=== PATIENT | female | born 1965 | race Caucasian/White ===

== ENCOUNTER 2022-02-25 | Outpatient (REF) | payer OTHER, SELFPAY | END 2022-02-25 00:01 | disposition home or self-care (01) | LOC: HO.LNP | PROVIDERS: Visit Provider Hospitalist | DX: R82.71 Bacteriuria (principal) | CPT/HCPCS: 87086 ==

== ENCOUNTER 2022-03-01 07:08 | Outpatient (REF) | payer OTHER, SELFPAY ==
[2022-03-01 11:48] LABS: Alanine Aminotransferase 11 U/L (0-31); Albumin Level 4.4 g/dL (3.5-5.0); Alkaline Phosphatase 73 U/L (39-117); Anion Gap 12 (12-20); Aspartate Amino Transferase 11 U/L (5-31); Bilirubin Total 0.9 mg/dL (0.0-1.0); Blood Urea Nitrogen 19 mg/dL (9-16); Calcium 9.5 mg/dL (8.4-10.2); Carbon Dioxide 29 mmol/L (22-29); Chloride 102 mmol/L (96-108); Cholesterol 230 mg/dL; Estimated Glomerular Filt Rate 58; Glucose Fasting 97 mg/dL (60-99); HDL Cholesterol 52 mg/dL; LDL Cholesterol Calculated 158 mg/dl; Potassium 3.8 mmol/L (3.3-5.1); Sodium 139 mmol/L (135-145); Total Protein 7.2 g/dL (6.5-8.0); Triglycerides 104 mg/dL
[2022-03-01 11:53] LABS: Hematocrit 43.1 % (37.0-47.0); Hemoglobin 14.4 g/dl (12.0-16.0); Mean Corpuscular HGB Conc 33.4 g/dl (31.0-35.0); Mean Corpuscular Hemoglobin 30.7 pg (27.0-33.0); Mean Corpuscular Volume 91.9 fL (80.0-98.0); Mean Platelet Volume 10.6 fL (9.4-12.3); Platelet Count 255 X10*3/uL (160-400); Red Blood Count 4.69 X10*6/uL (4.20-5.50); Red Cell Distribution Width 12.2 % (11.0-16.0); White Blood Count 6.7 X10*3/uL (4.8-10.8)
[2022-03-01 12:12] LABS: TSH reflex Free T4 1.16 uIU/mL (0.32-4.0)
== END 2022-03-01 07:09 | disposition home or self-care (01) ==
LOC: HO.WFDLDS 07:08
PROVIDERS: Visit Provider Hospitalist
DX: Z00.00 Encounter for general adult medical examination without abnormal findings (principal)
CPT/HCPCS: 36415; 80053; 80061; 84443; 85027

== ENCOUNTER 2022-04-08 10:52 | Outpatient (REF) | payer OTHER, SELFPAY ==
--- NOTE | ~2022-04-08 | MM_ITS ---
EXAMINATION: MM SCREENING DIGITAL BREAST TOMOSYNTHESIS, BILATERAL CLINICAL INFORMATION: Screening. Asymptomatic. The lifetime risk of breast cancer based on the Tyrer-Cuzick Model is 11%. COMPARISON: Mammography: None TECHNIQUE: Digital breast tomosynthesis is performed in both the craniocaudal and mediolateral oblique views along with computer-aided detection (CAD). Synthesized 2D images are generated from the tomosynthesis. FINDINGS: There are scattered areas of fibroglandular density (ACR BI-RADS breast composition Category b). There are no significant masses, abnormal calcifications, or other abnormalities. MM/MM tomosynthesis screening BI IMPRESSION: No mammographic evidence of malignancy. ASSESSMENT: BI-RADS 1: Negative RECOMMENDATION: Routine annual mammography screening. This patient's information was entered into a reminder system with a target due date for their next mammogram.
== END 2022-04-08 10:53 | disposition home or self-care (01) ==
LOC: HO.MAMMO 10:52
PROVIDERS: Visit Provider Hospitalist
DX: Z12.31 Encounter for screening mammogram for malignant neoplasm of breast (principal)
CPT/HCPCS: 77063; 77067

== ENCOUNTER 2023-04-15 09:03 | Day surgery (SDC) | payer OTHER, SELFPAY ==
--- NOTE | 2023-04-13 14:52 | HO.ANESPROP2 ---
Documented by User: Yulissa Chen NP 04/13/23 14:52 HPI - Anesthesia Eval Consult details Narrative: 57yo F for Colonoscopy [facility] Active Problems Active Problems: All Active Problems (Updated 02/25/22 @ 14:58 by Shivani Roman NP) Bacteria in urine (Acute) Screening due (Acute) Normal physical exam (Acute) Past Medical History Medical History (Updated 09/15/23 @ 20:31 by Antonio Conner MD) Thyroid cancer Family History Family History Mother Leukemia Father Leukemia Surgical History Surgical History (Updated 08/31/23 @ 09:57 by Amrita Juarez CMA) H/O colonoscopy H/O thyroidectomy History of lithotripsy Social History Household Members: Spouse and Children Housing: House Alcohol intake: never Patient Tobacco Use Status: Never used Tobacco e-Cigarette/Vaping Use: Never Used service: No Current occupational status: retired Cognitive needs: No Hearing needs: No Vision needs: Yes (Prescriprion glasses) Meds Allergies Allergy/AdvReac Type Severity Reaction Status Date / Time No Known Allergies Allergy Verified 08/31/23 09:52 Home Medications Medication Instructions Recorded Confirmed Last Taken Type levothyroxine 112 mcg capsule 112 mcg PO DAILY 02/25/22 04/15/23 Unknown History Exam Exam Date and Time: April 13, 2023 1452 Assessment and Plan Assessment Anesthesia Assessment: Chart Reviewed Documented by User: Riyk Thomson MD 09/22/23 23:56 [facility] Past Medical History Medical History (Updated 09/15/23 @ 20:31 by Antonio Conner MD) Thyroid cancer Functional capacity: independent ambulation Family History Family History Mother Leukemia Father Leukemia Family history of problems with anesthesia: No Surgical History Surgical History (Updated 08/31/23 @ 09:57 by Amrita Juarez CMA) H/O colonoscopy H/O thyroidectomy History of lithotripsy History of Problems with Anesthesia: No Social History Household Members: Spouse and Children Housing: House Alcohol intake: never Patient Tobacco Use Status: Never used Tobacco e-Cigarette/Vaping Use: Never Used service: No Current occupational status: retired Cognitive needs: No Hearing needs: No Vision needs: Yes (Prescriprion glasses) Meds Allergies Allergy/AdvReac Type Severity Reaction Status Date / Time No Known Allergies Allergy Verified 08/31/23 09:52 Home Medications Medication Instructions Recorded Confirmed Last Taken Type levothyroxine 112 mcg capsule 112 mcg PO DAILY 02/25/22 04/15/23 Unknown History Exam Airway Mallampati Class: III Loose/Missing/Broken Teeth: Yes Assessment and Plan Assessment Anesthesia Assessment: Anesthesia Plan Discussed Final Anesthetic Review Family History of Problems with Anesthesia: No History of Problems with Anesthesia: No NPO: Yes ASA Class: II Final Preanesthetic Review: Meds/Allgs Chart Reviewed, Consent Obtained/Reviewed and Anes Risks/Benef Reviewed Patient Risk: Intermediate Procedure Risk: Intermediate Anesthetic Plan Anesthetic Plan: MAC: and Agree w/ Assess. and Plan Disposition: Standard PACU
[2023-04-15 09:14] VITALS: BMI 22.9
[2023-04-15 09:27] VITALS: BP 157/85; PULSE 86; RESP 16; TEMP 36.9; O2SAT 98
[2023-04-15] MEDS: Lactated Ringers 1,000 ML 100 ML IVCONT (09:38)
--- NOTE | 2023-04-15 10:08 | MHC.SHP ---
Pre-Procedural Eval Section A Date of Service: 04/15/23 The patient is an INPATIENT: No The History & Physical has been completed within 30 days and I have reviewed it.: No Section B Chief Complaint: Colon cancer screening Relevant Family History (Specify if Yes): No Relevant Social History: None Present Medications: see Short Stay Collaborative assessment Medical History: Significant History (Thyroid cancer) History of Previous Operations: Relevant previous surgery/procedure and date(s) (Status post thyroidectomy) Allergies: Allergies Allergy/AdvReac Type Severity Reaction Status Date / Time No Known Allergies Allergy Verified 02/25/22 14:04 Review of Systems Sugical H&P ROS: Negative: Constitution, Cardiovascular, Respiratory and Gastrointestinal Exam Surgical H&P Exam: Normal: Heart, Normal: Lungs, Normal: Extremities and Normal: Abdomen Plan Diagnosis/Plan: Unchanged I have reviewed the history and physical and performed a pertinent physical examination on my patient. No changes have occurred unless specified. Time Spent With Patient Time: Total time managing care of this patient today ____ minutes.
--- NOTE | 2023-04-15 10:24 | P.OP_ITS ---
Operative Note Operative Note Date of Service: 04/15/23 Narrative: COLONOSCOPY TILL CECUM WITH SNARE POLYPECTOMY Pre-op diagnosis: Colon cancer screening (2nd colon, per patient negative colonoscopy 13 yrs ago in [place]) Post-op diagnosis:? Colon polyps, diverticulosis, hemorrhoids Endoscopist:? Ten Vicente MD Anesthesia:?MAC Consent: Indications for the procedure and potential complications of bleeding, perforation, reaction to medications and missed diagnosis were discussed with the patient and informed consent was obtained. Instrument: Olympus PCF H 190 L variable stiffness pediatric colonoscope Monitoring: Vital signs and clinical assessment, intermittent blood pressure monitoring, continuous EKG monitoring, Pulse oximetry and Carbon Dioxide monitoring were done throughout the procedure. Please see anesthesia flowsheet. Colon withdrawl time was 18 minutes. Procedure: The patient was placed in the left lateral decubitis position and pre-procedure medications were administered. After a digital rectal examination of the ano-rectum, the video colonoscope was inserted into the rectum and advanced through the colon to the cecum. The colonoscope was slowly withdrawn in a retrograde panoramic fashion and the colon mucosa was carefully examined including a retroflexed view of the rectum. Findings and interventions are described below. Procedure Difficulty: Without difficulty Findings: Terminal Ileum: Not evaluated Cecum: Normal Ascending Colon: Moderate scattered diverticulosis throughout the colon Transverse Colon: Moderate scattered diverticulosis throughout the colon Descending Colon: Two 7-8 mm sessile polyp - removed with a cold snare. Moderate scattered diverticulosis throughout the colon Sigmoid Colon: A 10 - 12 mm sessile polyp - removed with a hot snare. Moderate diverticulosis Rectum: Normal Ano-rectum: Small internal hemorrhoids Colon preparation: Excellent Impression and Post Procedure Diagnosis: Colonoscopy Findings: Three small to medium sized polyps removed Moderate diverticulosis seen in the entire colon Small hemorrhoids on retroflexed exam. Plan: I will send a letter with pathology results Repeat Colonoscopy interval based on path results - in 3-5 years if polyps are adenomatous and 10 years if polyps are hyperplastic. Above findings were reviewed with the patient and colon polyps and diverticulosis handouts were given in the discharge area
[2023-04-15 11:14] VITALS: BP 95/54; PULSE 73; RESP 15; TEMP 36.3; O2SAT 99
[2023-04-15 11:30] VITALS: BP 97/66; PULSE 59; RESP 18; O2SAT 98
[2023-04-15 11:45] VITALS: BP 110/68; PULSE 60; RESP 18; O2SAT 99
[2023-04-15 12:00] VITALS: BP 122/83; PULSE 66; RESP 18; TEMP 36.3; O2SAT 100
== END 2023-04-15 12:45 | disposition home or self-care (01) ==
PROVIDERS: PCP Hospitalist; Visit Provider Internal Medicine Gastroenterology
PROC: 0DJD8ZZ Inspection of Lower Intestinal Tract, Via Natural or Artificial Opening Endoscopic (ICD-10-PCS; CPT 45378; principal; 2023-04-15 10:30)
DX: Z12.11 Encounter for screening for malignant neoplasm of colon (principal); D12.4 Benign neoplasm of descending colon; K63.5 Polyp of colon; K57.30 Diverticulosis of large intestine without perforation or abscess without bleeding; K64.8 Other hemorrhoids; E89.0 Postprocedural hypothyroidism; Z79.899 Other long term (current) drug therapy; Z85.850 Personal history of malignant neoplasm of thyroid; Z87.442 Personal history of urinary calculi
CPT/HCPCS: 45385; 88305; J2250

== ENCOUNTER 2023-05-10 07:04 | Outpatient (REF) | payer OTHER, SELFPAY ==
[2023-05-10 11:12] LABS: MANUAL DIFF FLAG NO
[2023-05-10 11:32] LABS: Basophils Percent Auto 0.2 % (0-2); Eosinophils Percent Auto 0.8 % (0-4); Hemoglobin 14.4 g/dl (12.0-16.0); Imm Gran Abs Auto 0.02 X10*3/uL (0.00-0.03); Imm Gran Pct Auto 0.4 % (0.0-0.4); Lymphocytes Absolute Auto 1.6 X10*3/uL (1.2-4.9); Mean Corpuscular HGB Conc 33.5 g/dl (31.0-35.0); Mean Corpuscular Hemoglobin 31.6 pg (27.0-33.0); Mean Corpuscular Volume 94.5 fL (80.0-98.0); Mean Platelet Volume 10.7 fL (9.4-12.3); Monocytes Absolute Auto 0.4 X10*3/uL (0.1-1.2); Neutrophils Absolute Auto 2.9 x10*3/uL (2.0-8.3); Neutrophils Percent Auto 58.6 % (45-73); Platelet Count 214 X10*3/uL (160-400); Red Blood Count 4.55 X10*6/uL (4.20-5.50); Red Cell Distribution Width 11.9 % (11.0-16.0)
[2023-05-10 11:37] LABS: Appearance Urine Clear; Color Urine Yellow; Glucose Urine UA Negative (Negative); Leukocyte Esterase Urine Negative (Negative); Nitrite Urine Negative (Negative); Specific Gravity - Urine <= 1.005 (1.005-1.025); Urine Blood Negative (Negative); Urine Ketones Negative (Negative); Urine Protein Negative (Neg-Trace)
[2023-05-10 12:07] LABS: Alanine Aminotransferase 14 U/L (0-31); Albumin Level 4.6 g/dL (3.5-5.0); Alkaline Phosphatase 74 U/L (39-117); Anion Gap 14 (12-20); Aspartate Amino Transferase 13 U/L (5-31); Blood Urea Nitrogen 23 mg/dL (9-16); Carbon Dioxide 27 mmol/L (22-29); Chloride 103 mmol/L (96-108); Cholesterol 271 mg/dL; Estimated Glomerular Filt Rate 58; Glucose Fasting 94 mg/dL (60-99); HDL Cholesterol 61 mg/dL; LDL Cholesterol Calculated 172 mg/dl; Sodium 140 mmol/L (135-145); Total Protein 7.5 g/dL (6.5-8.0); Triglycerides 192 mg/dL
[2023-05-10 13:07] LABS: Creatinine Urine 13.73 mg/dL; Microalbumin Urine < 5.0 mg/L
== END 2023-05-10 07:05 | disposition home or self-care (01) ==
LOC: HO.WFDLDS 07:04
PROVIDERS: Visit Provider Family Medicine
DX: Z00.00 Encounter for general adult medical examination without abnormal findings (principal); I10 Essential (primary) hypertension
CPT/HCPCS: 36415; 80053; 80061; 81003; 82043; 84443; 85025

== ENCOUNTER 2023-05-11 08:43 | Emergency (ER) | payer OTHER, SELFPAY ==
[2023-05-11 09:17] VITALS: BP 144/88; PULSE 76; RESP 16; TEMP 36.8; O2SAT 99; BMI 23.8
--- NOTE | 2023-05-11 10:24 | ED.ABDPAIN ---
HPI - Abdominal Pain General Chief Complaint: General Medical Stated Complaint: possible Kidney stone Time Seen by Provider: 05/11/23 10:16 Source: patient Mode of arrival: ambulatory Limitations: no limitations History of Present Illness MD elicited complaint: abdominal pain Pertinent past history: kidney stones Onset (ago): week(s) (started 04/15) Pain Consistency: intermittent Location: R flank Severity: mild Quality: aching Radiation: none Migration to: no migration Exacerbating factors: nothing Relieving factors: nothing Context: other (hx of kidney stones had colonoscopy might have started after stools seems smaller - polyps on colonoscopy and diverticulosis) Associated symptoms: denies other symptoms Related Data Home Medications Medication Instructions Recorded Confirmed levothyroxine 112 mcg capsule 112 mcg PO DAILY 02/25/22 04/15/23 Allergies Allergy/AdvReac Type Severity Reaction Status Date / Time No Known Allergies Allergy Verified 05/11/23 09:25 Review of Systems Review of Systems Constitutional : No Weight loss, No Fever, No Chills ENT/Mouth : No sore throat, No Rhinorrhea Eyes: No Swelling, No Redness Cardiovascular : No Chest Pain, No SOB, NoEdema Respiratory : No Cough, No Sputum, No Wheezing Gastrointestinal : no Nausea, no Vomiting, no Diarrhea, positive abdominal Pain, No Hematochezia, No Melena Genitourinary : No Dysuria, No Urinary Frequency, No Hematuria, No Urgency Musculoskeletal : No joint pain, No Myalgias, No Joint Swelling Skin : No Skin Lesions, No rash Neuro : No Weakness, No Numbness, No Dizziness, No Headache Psych : No Anxiety/Panic, No Depression All other systems reviewed and are negative. [facility] Past Medical History Attestation statement: The following information was validated with the patient. Source: old records reviewed Medical History Thyroid cancer Surgical History H/O thyroidectomy History of lithotripsy Family History Family History Mother Leukemia Father Leukemia Social History Social History Household Members: Spouse and Children Housing: House Alcohol intake: never Patient Tobacco Use Status: Never used Tobacco e-Cigarette/Vaping Use: Never Used Advance Directives: No service: No Physical Exam ED Vital Signs: Vital Signs - 24 hr 05/11/23 09:17 Temperature 98.2 F Pulse Rate 76 Respiratory Rate 16 Blood Pressure 144/88 H Pulse Oximetry 99 Oxygen Delivery Method Room Air BMI result Body Mass Index 23.8 Appearance: Alert. Oriented X3. No acute distress. Eyes: Pupils equal, round and reactive to light. ENT: Pharynx normal. Neck: Normal inspection. Neck supple. CVS: Normal heart rate and rhythm. Pulses normal. Respiratory: No respiratory distress. Breath sounds normal. Abdomen: Soft and nontender. no CVA ttp no abdominal ttp on exam Skin: Skin warm and dry. Normal skin color. Normal skin turgor. Extremities: No lower extremity edema. No calf ttp Neuro: Oriented X 3. No motor deficit. No sensory deficit. Procedures Procedure Narrative Procedure Narrative: R renal and gallbladder - no stones, no pericholecystic fluid - neg kinsey's sign, no hydronephrosis no stones noted in R kidney Medical Decision Making Medical Decision Making MDM Narrative: 57 yo female with non reproduceable R flank pain without associated symptoms and no abdominal pain on exam - she is not toxic, US is normal labs are normal and urine was normal from PCP. at this time benign abdominal exam and benign and bedside US negative - given normal labs and UA negative can be DC home with outpatient follow up and GI - will defer CT scan given normal labs and benign abdominal exam Differential Diagnosis Differential Diagnoses: The differential diagnosis associated with the presentation includes renal colic, biliary colic, MSK strain Lab Data [facility] Lab Attestation statement: I reviewed the patient's lab results. Independent Interpretation I performed an independent interpretation of an: Ultrasound (no gallstones, no hydronephrosis) External Record Review External record reviewed: Inpatient record and Prior outpatient labs normal CBC, BMP, UA Tests considered The following testing was considered but not selected: CT scan but given normal labs, US no abdominal ttp risks of radiation outweigh benefit Discharge Plan Discharge Clinical Impression: Flank pain Patient Disposition: Home, Self-Care Instructions: Flank Pain (ED) Additional Instructions: your labs and urine were reassuring from your doctor - follow up on cholesterol. your ultrasound in the ED did not show gallstones or stones / obstruction in your kidney - please follow up with your doctor and obtain formal abdominal ultrasound return for fevers, weight loss, vomiting, black or bloody stools, difficulty urinating or any other concerns. Prescriptions: No Action levothyroxine 112 mcg capsule 112 mcg PO DAILY Referrals: Shivani Roman NP [Primary Care Provider] - 1 week (in the next week) Ten Vicente MD [Physician] - (if symptoms persist beyond a week)
== END 2023-05-11 10:56 | disposition home or self-care (01) ==
PROVIDERS: Emergency Provider Emergency Medicine; PCP Hospitalist
DX: R10.9 Unspecified abdominal pain (principal)
CPT/HCPCS: 99283; 99284

== ENCOUNTER 2023-05-16 11:24 | Outpatient (AMB) | payer OTHER, SELFPAY ==
--- NOTE | 2023-05-16 11:20 | MHC.PC.OV ---
Intake Visit Reasons: discuss lab results Intake Note: Patient is following up on blood work today. Allergies No Known Allergies Allergy (Verified 05/16/23 11:21) Tobacco use date assessed: 05/16/23 Dental Screening Dental Screen Date: 05/16/23 Did you have a dental visit in the last 12 months?: Yes Did you have a dental problem in the last 6 months where you did not have access to dental care?: No Was dental information given to patient?: No HPI discuss lab results HPI Details 57 y/o female presents to f/u labs via telemedicine. Labs were drawn 05/10/23. Reviewed labs with pt. Triglycerides 192. TC 271. LDL 172. HDL 61. TSH levels are fine at 2.90. She is on levothyroxine 112 mcg. HPI Comments History of Present Illness Details Documentation assistance for Antonio Conner MD, was provided by Rafiq Hannah, Advertising Sales Agent on 05/16/2023 11:35 AM EST. I, Dr. Conner, have read, observed, and verified documentation. [facility] Medical History Thyroid cancer Surgical History H/O thyroidectomy History of lithotripsy Family History Mother Leukemia Father Leukemia Social History Household Members: Spouse and Children Housing: House Alcohol intake: never Patient Tobacco Use Status: Never used Tobacco e-Cigarette/Vaping Use: Never Used service: No Physical exam (Primary Care) Tobacco/Smoking Status: Tobacco use Status Tobacco use date assessed 05/16/23 05/16/23 11:22 Patient Tobacco Use Status Never used Tobacco 05/16/23 11:22 e-Cigarette/Vaping Use Never Used 05/16/23 11:22 Telehealth Telehealth Location of provider rendering services: practice address Location of patient: address on file Patient Identification confirmed using: Name, : Yes Telehealth method: voice only Patient verbally consented to treatment: Yes Patient verbally consented to billing insurance company: Yes Patient informed of any privacy concerns related to visit: Yes Minutes spent on Phone/Video with Pt.: 8 Assessment and Plan Assessment & Plan (1) Hyperlipidemia: Code(s): E78.5 - Hyperlipidemia, unspecified Plan: LDL cholesterol is too high. HDL is significantly elevated and somewhat protective but recommended patient work at a diet lower in saturated fats and cholesterol She will repeat her lipids prior to her next appointment with her PCP (2) H/O thyroidectomy: Comment: unknown if partial or all Code(s): E89.0 - Postprocedural hypothyroidism Plan: TSH was within normal limits No change to her levothyroxine (3) Dehydration, mild: Code(s): E86.0 - Dehydration Plan: EGFR 58 and BUN creatinine ratio suggestive of mild dehydration Encouraged her to hydrate well with water prior to her next lab draw Follow-up with PCP Orders: Orders Comprehensive [place]. Panel Fast Today Z00.00 - Encounter for general adult medical examination without abnormal findings Lipid Panel Today E78.5 - Hyperlipidemia, unspecified, Z00.00 - Encounter for general adult medical examination without abnormal findings Coding Level of Care Code Tele Est Pt Level 2 (44827) Diagnoses Hyperlipidemia E78.5 H/O thyroidectomy E89.0 Dehydration, mild E86.0
== END 2023-05-16 11:45 | disposition home or self-care (01) ==
LOC: HO.HMGFM 11:24
PROVIDERS: PCP Hospitalist; Visit Provider Family Medicine
DX: E78.5 Hyperlipidemia, unspecified (principal); E89.0 Postprocedural hypothyroidism; E86.0 Dehydration
CPT/HCPCS: 99212

== ENCOUNTER 2023-07-13 07:03 | Outpatient (REF) | payer OTHER, SELFPAY ==
[2023-07-13 12:40] LABS: Alanine Aminotransferase 13 U/L (0-31); Albumin Level 4.5 g/dL (3.5-5.0); Alkaline Phosphatase 62 U/L (39-117); Anion Gap 12 (12-20); Aspartate Amino Transferase 15 U/L (5-31); Bilirubin Total 0.8 mg/dL (0.0-1.0); Blood Urea Nitrogen 23 mg/dL (9-16); Calcium 9.6 mg/dL (8.4-10.2); Carbon Dioxide 26 mmol/L (22-29); Chloride 105 mmol/L (96-108); Cholesterol 259 mg/dL (<200); Estimated Glomerular Filt Rate 55; Glucose Fasting 95 mg/dL (60-99); HDL Cholesterol 55 mg/dL (>40); LDL Cholesterol Calculated 167 mg/dL (<100); Potassium 4.2 mmol/L (3.3-5.1); Sodium 139 mmol/L (135-145); Total Protein 7.3 g/dL (6.5-8.0); Triglycerides 188 mg/dL (<150)
== END 2023-07-13 07:04 | disposition home or self-care (01) ==
LOC: HO.WFDLDS 07:03
PROVIDERS: Visit Provider Family Medicine
DX: Z00.00 Encounter for general adult medical examination without abnormal findings (principal); E78.5 Hyperlipidemia, unspecified
CPT/HCPCS: 36415; 80053; 80061

== ENCOUNTER 2023-08-31 09:41 | Outpatient (AMB) | payer OTHER, SELFPAY ==
--- NOTE | 2023-08-31 09:46 | A.OFFPC_ITS ---
Vital Signs 08/31/23 09:49 Height 5 ft 8 in Weight 156 lb BMI 23.7 BP 122/72 Blood Pressure Location Lt brachial Position Sitting Pulse 78 Pulse Source Pulse Oximeter Pulse Oximetry (%) 99 Oxygen Delivery Method Room Air Intake Visit Reasons: trans care from [facility] Intake Note: Patient is here to transfer care from [facility]. Allergies No Known Allergies Allergy (Verified 08/31/23 09:52) Tobacco use date assessed: 08/31/23 Dental Screening Dental Screen Date: 08/31/23 Did you have a dental visit in the last 12 months?: Yes Did you have a dental problem in the last 6 months where you did not have access to dental care?: No Was dental information given to patient?: Patient has dentist HPI trans care from [facility] HPI Details Transfer?of?care Prior?PCP:??SV Last?office?visit/CPE: Acute?issue(s): Hyperlipidemia -Labs were drawn 07/13/23. Reviewed labs with pt. Triglycerides 188. TC 259. LDL 167. HDL 55. Pt states she had a colonoscopy in March. They had seen some colon polyps and recommended a 5 year follow-up. PMHx: ?hypothyroidism?status?post?thyroidectomy, Thyroid Cancer, hyperlipidemia, Skin precancer, Colon Polyps, Kidney Stones SurgHx:??Injuries?thyroidectomy, Laser for stones FHx: Mom: Leukemia. Dad: CLL, BPH, HLD. SocHx: Nonsmoker. EtOH weekends 1-3 drinks. No drugs PFSH Medical History (Updated 08/31/23 @ 10:52 by Rafiq Hannah) Thyroid cancer Surgical History (Updated 08/31/23 @ 09:57 by Amrita Juarez CMA) H/O colonoscopy H/O thyroidectomy History of lithotripsy Family History Mother Leukemia Father Leukemia Social History Household Members: Spouse and Children Housing: House Alcohol intake: never Patient Tobacco Use Status: Never used Tobacco e-Cigarette/Vaping Use: Never Used service: No Current occupational status: retired Cognitive needs: No Hearing needs: No Vision needs: Yes (Prescriprion glasses) Questionnaire PHQ-9 Over the last 2 weeks, how often have you been bothered by any of the following problems? 1. Little interest or pleasure in doing things: not at all 2. Feeling down, depressed, or hopeless: not at all 3. Trouble falling or staying asleep, or sleeping too much: not at all 4. Feeling tired or having little energy: not at all 5. Poor appetite or overeating: not at all 6. Feeling bad about yourself - or that you are a failure or have let yourself or your family down: not at all 7. Trouble concentrating on things, such as reading the newspaper or watching television: not at all 8. Moving or speaking so slowly that other people could have noticed. Or the opposite - being so fidgety or restless that you have been moving around a lot more than usual: not at all 9. Thoughts that you would be better off or of hurting yourself in some way: not at all Total score: 0 Source: Developed by Drs. Tommy Carter, Salome Mcguire, Familia Tolentino and colleagues, with an educational jarrod from [employer]. Thrive Questionnaire Date Thrive assessed: 08/31/23 I am a: Patient What is your living situation today?: I have a steady place to live Within the past 12 months, did the food you bought not last and you didn't have the money to get more?: Never true Within the past 12 months, did you worry whether your food would run out before you got money to buy more?: Never true Do you have trouble paying for medicines?: No Do you have trouble getting transportation to medical appointments?: No Do you have trouble paying your heating and electricity bill?: No Do you have trouble taking care of your child, family member or friend?: No Do you have trouble with day-to-day activities such as bathing, preparing meals, shopping, managing finances, etc.?: No Are you currently unemployed and looking for a job?: No Are you interested in more education?: No AUDIT C Alcohol Use Questionnaire (AUDIT-C) 1. How often do you have a drink containing alcohol?: 2-3 times a week 2. How many drinks containing alcohol do you have on a typical day when you are drinking?: 3 or 4 3. How often do you have six or more drinks on one occasion?: Never Total Score: 4 COOPER-7 AMB Questionnaire COOPER-7 Date COOPER - 7 assessed: 08/31/23 Feeling nervous, anxious, or on edge: 0 = Not at all Not being able to stop or control worryin = Not at all Worrying too much about different things: 0 = Not at all Trouble relaxin = Not at all Being so restless that it is hard to sit still: 0 = Not at all Becoming easily annoyed or irritable: 0 = Not at all Feeling afraid as if something awful might happen: 0 = Not at all Total COOPER-7 score (0-4 normal; 5-9 mild; 10-14 moderate; 15-21 severe): 0 Source: Developed by Drs. Tommy Carter, Salome Mcguire, Familia Tolentino and colleagues, with an educational jarrod from [employer]. Review of Systems Const Denies chills, Denies fatigue, Denies fever(s), Denies headache(s) and Denies weakness ENT Denies dizziness and Denies headache(s) Card Denies chest pain, Denies lightheadedness, Denies dyspnea and Denies other (Palpitations) Resp Denies cough, Denies dyspnea, Denies wheezing and Denies other ( shortness of breath) Musc Denies numbness and Denies tingling Neuro Denies dizziness, Denies headache(s), Denies numbness, Denies tingling, Denies paresthesias and Denies weakness Psych Denies anxiety and Denies depression Endo Denies fatigue Aller/Immun Denies wheezing Physical exam (Primary Care) Vital Signs: Last Vital Signs Pulse 78 08/31/23 09:49 BP 122/72 08/31/23 09:49 Pulse Ox 99 08/31/23 09:49 Oxygen Delivery Method Room Air 08/31/23 09:49 BMI result Body Mass Index 23.7 Tobacco/Smoking Status: Tobacco use Status Tobacco use date assessed 08/31/23 08/31/23 09:57 Patient Tobacco Use Status Never used Tobacco 08/31/23 09:48 e-Cigarette/Vaping Use Never Used 08/31/23 09:48 PHQ-9: PHQ-9 Score PHQ-9: Total score 0 08/31/23 10:34 Thrive Assessment: Date of Thrive Assessment Date Thrive assessed 08/31/23 08/31/23 10:05 Const General: no acute distress and well developed Nutritional Appearance: well nourished Orientation/consciousness: patient oriented x3 [facility] Head: Yes normocephalic and Yes atraumatic Eyes General: appearance normal, both eyes and all related structures Pupils: Equal, round and reactive pupils present EOM: EOMs intact bilaterally Resp Effort & Inspection: normal respiratory effort Auscultation: clear to auscultation bilaterally Cardio Rate: regular rate Rhythm: regular rhythm Heart sounds: S1 normal heart sound present, S2 normal heart sound present, no gallops, no murmurs and no rubs Neuro General: patient oriented x3 and gait normal Cranial nerves: Yes Equal, round and reactive pupils present Psych Affect: normal affect Assessment and Plan Assessment & Plan (1) Hyperlipidemia: Code(s): E78.5 - Hyperlipidemia, unspecified Plan: Will?start?atorvastatin?20?mg?daily Recheck?labs?in?about?2?months (2) H/O thyroidectomy: Comment: unknown if partial or all Code(s): E89.0 - Postprocedural hypothyroidism Plan: Check?thyroid?hormone?level (3) Screening for colon cancer: Code(s): Z12.11 - Encounter for screening for malignant neoplasm of colon Plan: History?of?polyps?and?recommended?follow-up?in?5?years. (4) Osteoporosis: Code(s): M81.0 - Age-related osteoporosis without current pathological fracture Plan: Patient?acknowledges?diagnosis?of?osteoporosis She?is?not?on?a?bisphosphonate?medication?is?taking?an?over?the?counter?med Will?request?prior?report?and?compare (5) Breast cancer screening by mammogram: Code(s): Z12.31 - Encounter for screening mammogram for malignant neoplasm of breast Plan: Due?for?mammogram Ordered (6) Neoplasm of uncertain behavior of skin: Code(s): D48.5 - Neoplasm of uncertain behavior of skin Plan: History?of?prior?skin?abnormalities?and?biopsies. Due?for?skin?survey-referred?to?Dermatology Orders: Orders MM tomosynthesis screening BI Today Z12.31 - Encounter for screening mammogram for malignant neoplasm of breast Microalbumin, Random (w Creat) Today I10 - Essential (primary) hypertension UA and rflx microscopic Today Z00.00 - Encounter for general adult medical examination without abnormal findings Free T4 (Free Thyroxine) Today E03.9 - Hypothyroidism, unspecified Triiodothyronine T3 Total Today E03.9 - Hypothyroidism, unspecified XR DEXA axial skeleton Today M81.0 - Age-related osteoporosis without current pathological fracture Comprehensive [place]. Panel Fast Today Z00.00 - Encounter for general adult medical examination without abnormal findings Lipid Panel Today Z00.00 - Encounter for general adult medical examination without abnormal findings Thyroid Stimulating Hormone Today E03.9 - Hypothyroidism, unspecified Referrals Dermatology Referral D48.5 - Neoplasm of uncertain behavior of skin Coding Level of Care Code Est Pt Level 4 (41815) Diagnoses Hyperlipidemia E78.5 H/O thyroidectomy E89.0 Screening for colon cancer Z12.11 Osteoporosis M81.0 Breast cancer screening by mammogram Z12.31 Neoplasm of uncertain behavior of skin D48.5
[2023-08-31 09:49] VITALS: BP 122/72; PULSE 78; O2SAT 99; BMI 23.7
== END 2023-08-31 11:14 | disposition home or self-care (01) ==
PROVIDERS: PCP Hospitalist; Visit Provider Family Medicine
DX: E78.5 Hyperlipidemia, unspecified (principal); E89.0 Postprocedural hypothyroidism; Z12.11 Encounter for screening for malignant neoplasm of colon; M81.0 Age-related osteoporosis without current pathological fracture; Z12.31 Encounter for screening mammogram for malignant neoplasm of breast; D48.5 Neoplasm of uncertain behavior of skin
CPT/HCPCS: 99214

== ENCOUNTER 2023-10-04 13:25 | Outpatient (REF) | payer OTHER, SELFPAY ==
--- NOTE | ~2023-10-04 | MM_ITS ---
EXAMINATION: BONE DENSITOMETRY CLINICAL INDICATION: Postmenopausal. COMPARISON: This is the patient's baseline examination. TECHNIQUE: Using a [employer] DXA System (software version: 13.1) manufactured by [employer], dual-energy x-ray absorptiometry was performed of the lumbar spine and left hip. The images are of good technical quality. Summary results are attached. FINDINGS: LEFT FEMUR, NECK: BMD 0.822 g/cm2, Z-score -0.5, T-score -1.6, osteopenia. LEFT FEMUR, TOTAL: BMD 0.880 g/cm2, Z-score -0.3, T-score -1.0, normal. AP SPINE L1-L4: BMD 0.850 g/cm2, Z-score -1.8, T-score -2.8, osteoporosis. IDENTIFIED RISK FACTORS: Menopause. HISTORY OF FRACTURE: None listed. MEDICATIONS: Calcium, vitamin D. MM/XR DEXA axial skeleton IMPRESSION: 1. DIAGNOSIS: Osteoporosis based on the lowest T-score value of -2.8 in the lumbar spine applying World Health Organization criteria. 2. 10-YEAR FRACTURE RISK PREDICTION, FRAX: According to the guidelines, FRAX calculation should only be performed on patients in the osteopenia bone density category. Therefore, FRAX was not performed on this patient. 3. Treatment Recommendations: NOF guidelines recommend consideration for treatment in postmenopausal women and men age 50 and older presenting with the following: -A hip or vertebral (clinical or morphometric) fracture. -T-score less than or equal to -2.5 at the femoral neck or spine after appropriate evaluation to exclude secondary causes. -Low bone mass at the hip or spine and a 10-year fracture probability by FRAX of greater than or equal to 3% for hip fracture or greater than or equal to 20% for major osteoporotic fracture based on the [place] adapted WHO algorithm. 4. Other Recommendations: All treatment decisions require clinical judgment and consideration of individual patient factors, including patient preferences, comorbidities, previous drug use, risk factors not captured in the FRAX model (e.g. frailty, falls, vitamin D deficiency, increased bone turnover, interval significant decline in bone density) and possible under or overestimation of fracture risk by FRAX. Additional medical evaluation for secondary cause of low bone mineral density may be appropriate. FUTURE SCAN RECOMMENDATION: People with diagnosed cases of osteoporosis or at high risk for fracture should have regular bone mineral density tests. For patients eligible for Medicare, routine testing is allowed once every 2 years. The testing frequency can be increased to one year for patients who have rapidly progressing disease, those who are receiving or discontinuing medical therapy to restore bone mass, or have additional risk factors.
== END 2023-10-04 13:26 | disposition home or self-care (01) ==
LOC: HO.MAMMO 13:25
PROVIDERS: PCP Family Medicine; Visit Provider Family Medicine
DX: Z12.31 Encounter for screening mammogram for malignant neoplasm of breast (principal); Z13.820 Encounter for screening for osteoporosis; Z78.0 Asymptomatic menopausal state; M81.0 Age-related osteoporosis without current pathological fracture
CPT/HCPCS: 77063; 77067; 77080

== ENCOUNTER → 2023-10-04 14:00 | Outpatient (BNV) | payer OTHER, SELFPAY | PROVIDERS: PCP Family Medicine; Visit Provider Radiology Diagnostic Radiology | DX: Z12.31 Encounter for screening mammogram for malignant neoplasm of breast (principal) | CPT/HCPCS: 77063; 77067 ==

== ENCOUNTER 2023-11-18 07:16 | Outpatient (REF) | payer OTHER, SELFPAY ==
[2023-11-18 13:03] LABS: Alanine Aminotransferase 20 U/L (0-31); Albumin Level 4.5 g/dL (3.5-5.0); Alkaline Phosphatase 73 U/L (39-117); Anion Gap 12 (12-20); Aspartate Amino Transferase 16 U/L (5-31); Bilirubin Total 0.9 mg/dL (0.0-1.0); Blood Urea Nitrogen 23 mg/dL (9-16); Calcium 9.7 mg/dL (8.4-10.2); Carbon Dioxide 30 mmol/L (22-29); Chloride 104 mmol/L (96-108); Cholesterol 165 mg/dL (<200); Estimated Glomerular Filt Rate 56; Glucose Fasting 96 mg/dL (60-99); HDL Cholesterol 57 mg/dL (>40); LDL Cholesterol Calculated 86 mg/dL (<100); Potassium 4.3 mmol/L (3.3-5.1); Sodium 142 mmol/L (135-145); Total Protein 7.4 g/dL (6.5-8.0); Triglycerides 111 mg/dL (<150)
[2023-11-18 13:04] LABS: Free T4 (Free Thyroxine) 1.17 ng/dL (0.71-1.85); Thyroid Stimulating Hormone 0.93 uIU/mL (0.32-4.0)
[2023-11-19 11:54] LABS: Triiodothyronine T3 Total 115 ng/dL (76-181)
== END 2023-11-18 07:17 | disposition home or self-care (01) ==
LOC: HO.WFDLDS 07:16
PROVIDERS: Visit Provider Family Medicine
DX: Z00.00 Encounter for general adult medical examination without abnormal findings (principal); E03.9 Hypothyroidism, unspecified
CPT/HCPCS: 36415; 80053; 80061; 84439; 84443; 84480

== ENCOUNTER 2023-11-23 10:42 | Outpatient (AMB) | payer OTHER, SELFPAY ==
--- NOTE | 2023-11-23 10:49 | MHC.PC.OV ---
Vital Signs 11/23/23 10:50 Height 5 ft 8 in Weight 163 lb BMI 24.8 BP 122/60 Blood Pressure Location Lt brachial Position Sitting Pulse 72 Pulse Source Pulse Oximeter Pulse Oximetry (%) 98 Oxygen Delivery Method Room Air Intake Visit Reasons: PE Intake Note: Patient is here for her physical today, and following up on cholesterol med. Allergies No Known Allergies Allergy (Verified 11/23/23 10:58) Tobacco use date assessed: 11/23/23 Dental Screening Dental Screen Date: 11/23/23 Did you have a dental visit in the last 12 months?: Yes Did you have a dental problem in the last 6 months where you did not have access to dental care?: No Was dental information given to patient?: Patient has dentist HPI PE HPI Details 58 y/o female presents for a CPE with f/u labs and health maintenance. Labs were drawn 11/18/23. Reviewed labs with pt. Triglycerides 111. TC 165. LDL 86, which improved from 167 in July. HDL 57. She is on artovastatin 20mg. TSH 0.93. She is on levothyroxine 112 mcg daily. Bone density test 10/04/23 showed osteoporosis. Mammogram 10/04/23 showed no mammographic evidence of malignancy. She walks for exercise. She eats a healthy diet. HPI Comments History of Present Illness Details Documentation assistance for Antonio Conner MD, was provided by Rafiq Hannah, Mortgage Advisor on 11/23/2023 11:19 A.M EST. I, Dr. Conner, have read, observed, and verified documentation. PFSH Medical History Thyroid cancer Surgical History H/O colonoscopy H/O thyroidectomy History of lithotripsy Family History Mother Leukemia Father Leukemia Social History Household Members: Spouse and Children Housing: House Alcohol intake: never Patient Tobacco Use Status: Never used Tobacco e-Cigarette/Vaping Use: Never Used service: No Current occupational status: retired Cognitive needs: No Hearing needs: No Vision needs: Yes (Prescriprion glasses) Questionnaire PHQ-9 Over the last 2 weeks, how often have you been bothered by any of the following problems? 1. Little interest or pleasure in doing things: not at all 2. Feeling down, depressed, or hopeless: not at all 3. Trouble falling or staying asleep, or sleeping too much: not at all 4. Feeling tired or having little energy: not at all 5. Poor appetite or overeating: not at all 6. Feeling bad about yourself - or that you are a failure or have let yourself or your family down: not at all 7. Trouble concentrating on things, such as reading the newspaper or watching television: not at all 8. Moving or speaking so slowly that other people could have noticed. Or the opposite - being so fidgety or restless that you have been moving around a lot more than usual: not at all 9. Thoughts that you would be better off or of hurting yourself in some way: not at all Total score: 0 Source: Developed by Drs. Tommy Carter, Salome Mcguire, Familia Tolentino and colleagues, with an educational jarrod from [employer]. Thrive Questionnaire Date Thrive assessed: 08/31/23 I am a: Patient What is your living situation today?: I have a steady place to live Within the past 12 months, did the food you bought not last and you didn't have the money to get more?: Never true Within the past 12 months, did you worry whether your food would run out before you got money to buy more?: Never true Do you have trouble paying for medicines?: No Do you have trouble getting transportation to medical appointments?: No Do you have trouble paying your heating and electricity bill?: No Do you have trouble taking care of your child, family member or friend?: No Do you have trouble with day-to-day activities such as bathing, preparing meals, shopping, managing finances, etc.?: No Are you currently unemployed and looking for a job?: No Are you interested in more education?: No THRIVE Score: 0 AUDIT C Alcohol Use Questionnaire (AUDIT-C) 1. How often do you have a drink containing alcohol?: 2-3 times a week 2. How many drinks containing alcohol do you have on a typical day when you are drinking?: 3 or 4 3. How often do you have six or more drinks on one occasion?: Never Total Score: 4 COOPER-7 AMB Questionnaire COOPER-7 Date COOPER - 7 assessed: 11/23/23 Feeling nervous, anxious, or on edge: 0 = Not at all Not being able to stop or control worryin = Not at all Worrying too much about different things: 0 = Not at all Trouble relaxin = Not at all Being so restless that it is hard to sit still: 0 = Not at all Becoming easily annoyed or irritable: 0 = Not at all Feeling afraid as if something awful might happen: 0 = Not at all Total COOPER-7 score (0-4 normal; 5-9 mild; 10-14 moderate; 15-21 severe): 0 Source: Developed by Drs. Tommy Carter, Salome Mcguire, Familia Tolentino and colleagues, with an educational jarrod from [employer]. Review of Systems Const Denies chills, Denies fatigue, Denies fever(s), Denies headache(s) and Denies weakness Eyes Denies change in vision ENT Denies dizziness, Denies headache(s), Denies hearing loss, Denies nasal congestion, Denies sinus pain, Denies sinus pressure and Denies sore throat Card Denies chest pain, Denies lightheadedness, Denies dyspnea and Denies other (palpitations) Resp Denies cough, Denies dyspnea and Denies wheezing GI Denies abdominal pain, Denies melena, Denies hematochezia, Denies change in bowel habits, Denies dyspepsia and Denies nausea Denies hematuria and Denies dysuria Musc Denies abnormal gait, Denies myalgias, Denies arthralgias, Denies numbness and Denies tingling Skin/Breast Denies rash, Denies unusual bruising and Denies wounds Neuro Denies abnormal gait, Denies dizziness, Denies headache(s), Denies memory loss, Denies numbness, Denies Sensory deficit (Neuro), Denies tingling and Denies weakness Psych Denies anxiety, Denies depression and Denies memory loss Endo Denies cold intolerance, Denies fatigue, Denies heat intolerance, Denies polydipsia and Denies polyuria Rupert/Lymph Denies easy bleeding and Denies easy bruising Aller/Immun Denies wheezing Physical exam (Primary Care) Vital Signs: Last Vital Signs Pulse 72 11/23/23 10:50 BP 122/60 11/23/23 10:50 Pulse Ox 98 11/23/23 10:50 Oxygen Delivery Method Room Air 11/23/23 10:50 BMI result Body Mass Index 24.8 Tobacco/Smoking Status: Tobacco use Status Tobacco use date assessed 11/23/23 11/23/23 11:04 Patient Tobacco Use Status Never used Tobacco 11/23/23 10:49 e-Cigarette/Vaping Use Never Used 11/23/23 10:49 PHQ-9: PHQ-9 Score PHQ-9: Total score 0 11/23/23 11:14 Thrive Assessment: Date of Thrive Assessment Date Thrive assessed 08/31/23 11/23/23 10:49 Const General: no acute distress, well developed, alert and awake Nutritional Appearance: well nourished Orientation/consciousness: patient oriented x3 HENMT Head: Yes normocephalic and Yes atraumatic Ears: hearing grossly normal bilaterally and TM's normal bilaterally General nose exam: Normal external nose present and Normal nares present Mouth: Normal oral and palatal mucosa present and moist mucous membranes Teeth and gingiva: dentition normal Throat: Yes posterior oropharynx normal Eyes General: appearance normal, both eyes and all related structures Pupils: Equal, round and reactive pupils present and Pupil accommodation reflex normal EOM: EOMs intact bilaterally Neck Neck: Yes normal visual inspection, Yes no lymphadenopathy and Yes trachea midline Thyroid: Thyroid normal Carotids: no bruits Lymphatic: no lymphadenopathy noted Chest Chest palpation & inspection: normal inspection of the chest Resp Effort & Inspection: normal respiratory effort Auscultation: clear to auscultation bilaterally Cardio Rate: regular rate Rhythm: regular rhythm Heart sounds: S1 normal heart sound present, S2 normal heart sound present, no gallops, no murmurs and no rubs Bruits: no abdominal aortic bruits and no carotid bruits GI Palpation (GI): No Abdominal aortic bruit present, Soft to palpation, nontender, No hepatosplenomegaly present and No Rebound tenderness present Auscultation: normal bowel sounds General: Yes no CVA tenderness Back/Spine/Pelvis Back: no CVA tenderness Cervical Spine: cervical ROM normal and No Cervical spine tenderness Thoracic/Lumbar Spine: thoraco-lumbar ROM normal, No pain with thoraco-lumbar ROM, No thoracic spinal tenderness and No lumbar spinal tenderness Skin Lesions: no lesions Rashes: no rashes Trauma: no lacerations or abrasions Wounds: no wounds Nails: normal Neuro General: patient oriented x3 Cranial nerves: Yes Equal, round and reactive pupils present Cognition (Neuro): normal cognition Gait exam (Neuro): Normal gait present Motor exam (neuro): 5/5 motor strength present throughout Sensory Exam: No Sensory deficit (Neuro) Deep tendon reflexes (DTR's): Right patellar reflex intensity grade: 2+ and Left patellar reflex intensity grade: 2+ Extrem General: Yes normal to inspection and No edema Psych Appearance: grossly normal Affect: normal affect Attitude: cooperative Thought process: Normal thought process present Assessment and Plan Assessment & Plan (1) Adult general medical exam: Code(s): Z00.00 - Encounter for general adult medical examination without abnormal findings Plan: 58-year-old?female?presents?for?complete?physical?exam Encouraged?healthy?diet?with?active?lifestyle?and?plenty?of?exercise (2) Hyperlipidemia: Code(s): E78.5 - Hyperlipidemia, unspecified Plan: Well?controlled?with?atorvastatin. Will?reduce?atorvastatin?from?20?mg?daily?to?10?mg?daily Continue?diet?low?in?saturated?fats?and?cholesterol.??Will?recheck?lipids?in?about?6?months (3) Osteoporosis: Code(s): M81.0 - Age-related osteoporosis without current pathological fracture Plan: Known?osteoporosis. Patient?has?good?sources?of?calcium?and?vitamin-D?and?exercises?daily Continue?calcium?and?vitamin-D?and?increase?weight-bearing?exercise Will?recheck?bone?density?in?2?years (4) Screening for colon cancer: Code(s): Z12.11 - Encounter for screening for malignant neoplasm of colon Plan: Up-to-date?with?colonoscopy?by?[facility]?GI Recommended?follow-up?in?2027 (5) Breast cancer screening by mammogram: Code(s): Z12.31 - Encounter for screening mammogram for malignant neoplasm of breast Plan: Mammogram?was?negative?for?malignancy Continue?annual?screening (6) Screening for cervical cancer: Code(s): Z12.4 - Encounter for screening for malignant neoplasm of cervix Plan: Patient?would?like?a?referral?to?[facility]?editor dictionary For?screening?for?cervical?cancer-referred (7) H/O thyroidectomy: Comment: unknown if partial or all Code(s): E89.0 - Postprocedural hypothyroidism Plan: Thyroid?hormone?levels?are?within?normal?limits Continue?levothyroxine?as?prescribed Orders: Referrals [facility] [facility] Referral Z12.4 - Encounter for screening for malignant neoplasm of cervix Medications: Changed From atorvastatin 20 mg PO BEDTIME 30 days 30 tabs 2RF To atorvastatin 10 mg PO BEDTIME 90 days 90 tabs 2RF Coding Level of Care Code Est Pt Level 3 (64021) Est Pt Prev Care 40-64y(60255) Diagnoses Adult general medical exam Z00.00 Hyperlipidemia E78.5 Osteoporosis M81.0 Screening for colon cancer Z12.11 Breast cancer screening by mammogram Z12.31 Screening for cervical cancer Z12.4 H/O thyroidectomy E89.0
[2023-11-23 10:50] VITALS: BP 122/60; PULSE 72; O2SAT 98; BMI 24.8
== END 2023-11-23 11:32 | disposition home or self-care (01) ==
PROVIDERS: PCP Family Medicine; Visit Provider Family Medicine
DX: Z00.00 Encounter for general adult medical examination without abnormal findings (principal); E78.5 Hyperlipidemia, unspecified; M81.0 Age-related osteoporosis without current pathological fracture; E89.0 Postprocedural hypothyroidism; Z12.11 Encounter for screening for malignant neoplasm of colon; Z12.31 Encounter for screening mammogram for malignant neoplasm of breast; Z12.4 Encounter for screening for malignant neoplasm of cervix
CPT/HCPCS: 99396

== ENCOUNTER 2024-02-21 08:26 | Outpatient (REF) | payer OTHER, SELFPAY ==
[2024-02-21 12:24] LABS: Albumin Level 4.6 g/dL (3.5-5.0); Anion Gap 12 (12-20); Blood Urea Nitrogen 28 mg/dL (9-16); Calcium 10.1 mg/dL (8.4-10.2); Carbon Dioxide 30 mmol/L (22-29); Chloride 104 mmol/L (96-108); Estimated Glomerular Filt Rate 50; Glucose Random 83 mg/dL (60-115); Potassium 4.4 mmol/L (3.3-5.1); Sodium 142 mmol/L (135-145)
[2024-02-21 12:43] LABS: Vitamin D 25-OH Total 36.2 ng/mL (>30)
[2024-02-22 13:13] LABS: Thyroglobulin Antibodies <1 IU/mL (< or = 1)
[2024-02-24 06:09] LABS: Thyroglobulin Antibody <1 IU/mL (<=1); Thyroglobulin Level <0.1 ng/mL
== END 2024-02-21 08:27 | disposition home or self-care (01) ==
LOC: HO.WFDLDS 08:26
PROVIDERS: Visit Provider Physician Assistant
DX: M81.0 Age-related osteoporosis without current pathological fracture (principal); C73 Malignant neoplasm of thyroid gland
CPT/HCPCS: 36415; 80048; 82040; 82306; 84432; 84443; 86800

== ENCOUNTER 2024-05-10 07:30 | Outpatient (REF) | payer OTHER, SELFPAY ==
[2024-05-10 12:22] LABS: Appearance Urine Clear; Color Urine Yellow; Glucose Urine UA Negative (Negative); Leukocyte Esterase Urine Small (1+) (Negative); Nitrite Urine Negative (Negative); Specific Gravity - Urine <= 1.005 (1.005-1.025); UMIC TRIGGER UA YES; Urine Blood Negative (Negative); Urine Ketones Negative (Negative); Urine Protein Negative (Neg-Trace)
[2024-05-10 12:27] LABS: Alanine Aminotransferase 18 U/L (0-31); Albumin Level 4.7 g/dL (3.5-5.0); Alkaline Phosphatase 88 U/L (39-117); Anion Gap 13 (12-20); Aspartate Amino Transferase 16 U/L (5-31); Bilirubin Total 0.8 mg/dL (0.0-1.0); Blood Urea Nitrogen 24 mg/dL (9-16); Calcium 10.1 mg/dL (8.4-10.2); Carbon Dioxide 29 mmol/L (22-29); Chloride 102 mmol/L (96-108); Cholesterol 208 mg/dL (<200); Estimated Glomerular Filt Rate 51; Glucose Fasting 91 mg/dL (60-99); HDL Cholesterol 60 mg/dL (>40); LDL Cholesterol Calculated 123 mg/dL (<100); Potassium 4.2 mmol/L (3.3-5.1); Sodium 140 mmol/L (135-145); Total Protein 7.7 g/dL (6.5-8.0); Triglycerides 128 mg/dL (<150)
[2024-05-10 12:30] LABS: Creatinine Urine 15.25 mg/dL; Microalbumin Urine < 5.0 mg/L
[2024-05-10 12:37] LABS: Bacteria Urine None Seen (None Seen); Hyaline Casts Urine 0-2 /LPF (0-2); RBC Urine 0-2 /HPF (0-2); Squamous Epithelial Cell Urine 0-2 /HPF (0-2); WBC Urine 0-5 /HPF (0-5)
== END 2024-05-10 07:31 | disposition home or self-care (01) ==
LOC: HO.WFDLDS 07:30
PROVIDERS: Visit Provider Family Medicine
DX: Z00.00 Encounter for general adult medical examination without abnormal findings (principal); I10 Essential (primary) hypertension; E78.5 Hyperlipidemia, unspecified
CPT/HCPCS: 36415; 80053; 80061; 81001; 81003; 82043; 82570

== ENCOUNTER 2024-05-16 13:29 | Outpatient (REF) | payer OTHER, SELFPAY ==
[2024-05-22 12:43] LABS: HPV mRNA E6/E7 Not Detected (Not Detected)
== END 2024-05-16 13:30 | disposition home or self-care (01) ==
LOC: HO.LNP 13:29
PROVIDERS: PCP Family Medicine; Visit Provider Advanced Practice Midwife
DX: Z01.419 Encounter for gynecological examination (general) (routine) without abnormal findings (principal); Z11.51 Encounter for screening for human papillomavirus (HPV); R82.998 Other abnormal findings in urine
CPT/HCPCS: 81003; 87624; 88175

== ENCOUNTER 2024-05-16 13:29 | Outpatient (AMB) | payer OTHER, SELFPAY ==
[2024-05-16 13:52] VITALS: BP 122/82; BMI 24.2
--- NOTE | 2024-05-16 13:52 | MHC.OFFVIS ---
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 She is doing well with no concerns. Patient requests a urine dip today due to recent history of leukocytes, she has no urinary symptoms or vaginal discharge or itching. Attempting to eat a healthy diet with calcium and vitamin D and stays active with exercise daily. Currently sexually active. Denies any vaginal dryness or irritation. STI testing offered; she declines. Last pap smear; 5yrs. ago, normal history. Last mammogram; 2022. Colonoscopy is UTD. Denies any family history of breast, ovarian or colon cancer. [facility] Medical History Thyroid cancer Surgical History H/O colonoscopy H/O thyroidectomy History of lithotripsy Family History Mother Leukemia Father Leukemia Paternal Grandmother History of breast cancer Social History Household Members: Spouse and Children Housing: House Alcohol intake: never Patient Tobacco Use Status: Never used Tobacco e-Cigarette/Vaping Use: Never Used service: No Current occupational status: retired Cognitive needs: No Hearing needs: No Vision needs: Yes (Prescriprion glasses) Female Reproductive History Menstrual Menopause type: natural Total pregnancies: 3 Full term: 2 Premature: 1 (delivered 5 months gestation) Number of Living Children: 2 Date of last pap smear: 10/31/18 History of abnormal pap smear: Yes (hx laser 1985) Date of Mammogram: 10/04/23 (Birad 1) Date of last Bone Density Screenin10/04/23 Review of Systems Const All systems reviewed & are unremarkable except as noted in HPI and below Reports as per HPI Eyes Reports no additional complaints ENT Reports no additional complaints Card Reports no additional complaints Resp Reports no additional complaints GI Reports as per HPI and Reports no additional complaints Reports as per HPI Musc Reports no additional complaints Skin/Breast Reports as per HPI Neuro Reports no additional complaints Psych Reports no additional complaints Endo Reports no additional complaints Rupert/Lymph Reports no additional complaints Aller/Immun Reports no additional complaints Physical Exam Vital Signs: Last Vital Signs BP 122/82 05/16/24 13:52 BMI result Body Mass Index 24.2 Const General: cooperative, healthy appearing, no acute distress, well developed and alert Orientation/consciousness: patient oriented x3 HEENT Head: Yes normal to inspection Eyes General: appearance normal, both eyes and all related structures Neck Neck: Yes normal visual inspection Thyroid: Thyroid normal Chest Chest palpation & inspection: normal inspection of the chest and other (no puckering, dimpling, peau de orange, retraction, discharge, masses) Breast/axilla inspection: normal inspection of the breasts Breast/axilla palpation: normal palpation of the breasts Resp Effort & Inspection: normal respiratory effort GI Inspection: Yes normal to inspection Palpation (GI): Soft to palpation Rectal Exam - Female: deferred General: Yes bladder normal to palpation External Female Exam: normal external appearance and normal appearance of the urethra Speculum Exam - Vagina: normal appearance of the vagina, normal palpation, normal vaginal discharge and vagina atrophic Speculum Exam - Cervix: normal appearance of the cervix and normal palpation Bimanual exam- vagina & uterus: normal bimanual exam, normal palpation, uterine size normal, bladder normal to palpation, normal palpation and non-tender Bimanual Exam- Adnexa, other: no masses Skin General skin exam: no rashes or lesions noted Rashes: no rashes Neuro General: patient oriented x3 Cognition (Neuro): normal cognition Extrem General: Yes normal to inspection Psych Attitude: cooperative Thought process: Normal thought process present Results AMB Urinalysis, Automated UA Leukoctes 0 Madelyn/uL Last Edit by NA Giles on 05/16/24 14:19 UA Nitrite Negative Last Edit by NA Giles on 05/16/24 14:19 UA Urobilinogen 0 mg/dL Last Edit by NA Giles on 05/16/24 14:19 UA Protein 0 mg/dL Last Edit by NA Giles on 05/16/24 14:19 UA pH 6.0 Last Edit by Alana Lee A on 05/16/24 14:19 UA Blood 0 Hardik/uL Last Edit by Alana Lee A on 05/16/24 14:19 UA Specific [place] 1.010 Last Edit by Alana Lee RMA on 05/16/24 14:19 UA Ketone Negative Last Edit by Alana Lee A on 05/16/24 14:19 UA Bilirubin 0 mg/dL Last Edit by Alana Lee A on 05/16/24 14:19 UA Glucose 0 mg/dL Last Edit by Alana Lee A on 05/16/24 14:19 Results Reviewed Results Reviewed: Laboratory Last Values Urine pH (Auto) 6.0 05/16/24 14:15 Specific [place] (Auto) 1.010 05/16/24 14:15 Urine Protein (Auto) 0 mg/dL 05/16/24 14:15 Glucose (UA)(Auto) 0 mg/dL 05/16/24 14:15 Urine Ketones (Auto) Negative 05/16/24 14:15 Urine Blood (Auto) 0 Hardik/uL 05/16/24 14:15 Urine Nitrite (Auto) Negative 05/16/24 14:15 Urine Bilirubin (Auto) 0 mg/dL 05/16/24 14:15 Urine Urobilinogen (Auto) 0 mg/dL 05/16/24 14:15 Leukocyte Esterase (Auto) 0 Madelyn/uL 05/16/24 14:15 Assessment & Plan Assessment & Plan (1) Encounter for well woman exam with routine gynecological exam: Code(s): Z01.419 - Encounter for gynecological examination (general) (routine) without abnormal findings Category: Medical Plan Discussed: Current recommendations for pap smears per ASCCP guidelines. Breast awareness, periodic self breast exams and yearly mammogram. Maintain a healthy lifestyle, well balanced diet including Calcium 1,200 mg and Vitamin D 600 IU daily, and routine exercise. Urine dip is clear of leukocytes today. Contact the office with any postmenopausal bleeding. Patient verbalizes understanding and agrees to the plan of care. She was given opportunity to ask questions and all questions were answered to the best of my ability. 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 This note is constructed using voice recognition software. While every effort has been made to ensure accuracy, reproduction order processor errors may have been included. Orders: Orders PAP + HPV E6/E7 rfx 18/45 Today Z01.419 - Encounter for gynecological examination (general) (routine) without abnormal findings AMB Urinalysis Automated Today R82.998 - Other abnormal findings in urine Coding Level of Care Code New Pt Prev Care 40-64y(05251) Diagnoses Encounter for well woman exam with routine gynecological exam Z01.419
== END 2024-05-16 14:20 | disposition home or self-care (01) ==
PROVIDERS: PCP Family Medicine; Visit Provider Advanced Practice Midwife
DX: Z01.419 Encounter for gynecological examination (general) (routine) without abnormal findings (principal); R82.998 Other abnormal findings in urine
CPT/HCPCS: 99386

== ENCOUNTER 2024-05-18 15:16 | Outpatient (AMB) | payer OTHER, SELFPAY ==
--- NOTE | 2024-05-18 15:13 | A.OFFPC_ITS ---
Intake Visit Reasons: f/u HLD Intake Note: Patient is scheduled to follow up on blood work today. Allergies No Known Allergies Allergy (Verified 05/18/24 15:15) Tobacco use date assessed: 05/18/24 Dental Screening Dental Screen Date: 11/23/23 HPI f/u HLD HPI Details 58 y/o female presents to /u [facility] via [facility]. Labs were drawn 05/10/24. Reviewed labs with pt. Triglycerides 128. TC 208. LDL 123. HDL 60. She is on artovastatin 10mg. PFSH Medical History Thyroid cancer Surgical History H/O colonoscopy H/O thyroidectomy History of lithotripsy Family History Mother Leukemia Father Leukemia Paternal Grandmother History of breast cancer Social History Household Members: Spouse and Children Housing: House Alcohol intake: never Patient Tobacco Use Status: Never used Tobacco e-Cigarette/Vaping Use: Never Used service: No Current occupational status: retired Cognitive needs: No Hearing needs: No Vision needs: Yes (Prescriprion glasses) Questionnaire Thrive Questionnaire Date Thrive assessed: 08/31/23 COOPER-7 AMB Questionnaire COOPER-7 Date COOPER - 7 assessed: 11/23/23 Source: Developed by Drs. Tommy Carter, Salome Mcguire, Familia Tolentino and colleagues, with an educational jarrod from [employer] Review of Systems Const Denies chills, Denies fatigue, Denies fever(s), Denies headache(s) and Denies weakness ENT Denies dizziness and Denies headache(s) Card Denies dyspnea Resp Denies cough, Denies dyspnea, Denies wheezing and Denies other (shortness of breath) Musc Denies numbness and Denies tingling Neuro Denies dizziness, Denies headache(s), Denies numbness, Denies tingling and Denies weakness Psych Denies anxiety and Denies depression Endo Denies fatigue Aller/Immun Denies wheezing Physical exam (Primary Care) Tobacco/Smoking Status: Tobacco use Status Tobacco use date assessed 05/18/24 05/18/24 15:15 Patient Tobacco Use Status Never used Tobacco 05/18/24 15:15 e-Cigarette/Vaping Use Never Used 05/18/24 15:15 Thrive Assessment: Date of Thrive Assessment Date Thrive assessed 08/31/23 05/18/24 15:15 Const General: well developed; No acute distress Nutritional Appearance: well nourished Orientation/consciousness: patient oriented x3 HENMT Head: Yes normocephalic and Yes atraumatic Eyes General: appearance normal, both eyes and all related structures Pupils: Equal, round and reactive pupils present EOM: EOMs intact bilaterally Resp Effort & Inspection: normal respiratory effort Neuro General: patient oriented x3 and gait normal Cranial nerves: Yes Equal, round and reactive pupils present Psych Affect: normal affect Telehealth Telehealth Telehealth Platform: Telephone Location of provider rendering services: practice address Location of patient: address on file Patient Identification confirmed using: Name, : Yes Telehealth method: voice only Patient verbally consented to treatment: Yes Patient verbally consented to billing insurance company: Yes Patient informed of any privacy concerns related to visit: Yes Minutes spent on Phone/Video with Pt.: 7 Assessment and Plan Assessment & Plan (1) Hyperlipidemia: Code(s): E78.5 - Hyperlipidemia, unspecified Plan: LDL?cholesterol?above?goal?of?less?than?100?since?decreasing?her?atorvastatin. However?patient?also?notes?that?she?has?had?more?dietary?indiscretions. No?medication?changes?today Work?on?a?diet?lower?in?saturated?fats?and?cholesterol Recheck?lipids?with?next?blood?draw?prior?to?her?physical?in?about?6?months Coding Level of Care Code Tele Est Pt Level 2 (12388) Diagnoses Hyperlipidemia E78.5
== END 2024-05-18 17:00 | disposition home or self-care (01) ==
LOC: HO.HMGFM 15:16
PROVIDERS: PCP Family Medicine; Visit Provider Family Medicine
DX: E78.5 Hyperlipidemia, unspecified (principal)
CPT/HCPCS: G2012

== ENCOUNTER 2024-07-19 09:26 | Outpatient (AMB) | payer OTHER, SELFPAY ==
--- NOTE | 2024-07-19 09:27 | MHC.OFFWIV ---
Intake Vital Signs 07/19/24 09:30 Height 5 ft 8 in Weight 159 lb 4 oz BMI 24.2 BP 132/72 Blood Pressure Location Rt brachial Position Sitting Respiration 15 Pulse 69 Pulse Source Pulse Oximeter Pulse Oximetry (%) 99 Oxygen Delivery Method Room Air Intake Visit Reasons: Back pain Intake Note: patient complaining of pain on lower back and feels better after bowel movement since last year Patient Tobacco Use Status: Never used Tobacco Allergies No Known Allergies Allergy (Verified 07/19/24 09:36) Medication List - Last Reconciled 07/19/24 by Triston Neri CNP atorvastatin 10 mg PO BEDTIME 90 days levothyroxine 112 mcg PO DAILY Do you need a note to return to daycare/school/sports/work: No HPI HPI Comments History of Present Illness Details 59-year-old female presents with complaints of right-sided low back pain. She notes that her symptoms started shortly after she had a colonoscopy several years ago. She describes the pain as pressure, worse in the morning, and improves after a BM and in in crease activates. She denies tingling, numbness, or loss of sensation. No symptoms. She denies fall, injury, or trauma. She has not taking any medication for her symptoms. She has been riding a bicycle daily for the past 4 months. [facility] Medical History Thyroid cancer Surgical History H/O colonoscopy H/O thyroidectomy History of lithotripsy Family History Mother Leukemia Father Leukemia Paternal Grandmother History of breast cancer Social History Household Members: Spouse and Children Housing: House Alcohol intake: never Patient Tobacco Use Status: Never used Tobacco e-Cigarette/Vaping Use: Never Used service: No Current occupational status: retired Cognitive needs: No Hearing needs: No Vision needs: Yes (Prescriprion glasses) Review of Systems Const Details: Const Denies chills, Denies fatigue, Denies fever(s), Denies headache(s) and Denies weakness ENT Denies change in vision, Denies dizziness, Denies headache(s), Denies hearing loss, Denies nasal congestion, Denies sinus pain, Denies sinus pressure and Denies sore throat Resp Denies cough, Denies dyspnea, Denies wheezing and Denies other (shortness of breath) Cardio Denies chest pain, Denies lightheadedness, Denies dyspnea and Denies other (palpitations) Neuro Denies dizziness, Denies headache(s), Denies numbness, Denies tingling and Denies weakness Musc Reports as per HPI Endo Denies fatigue Aller/Immun Denies wheezing Physical Exam Vital Signs: Last Vital Signs Pulse 69 07/19/24 09:30 Resp 15 07/19/24 09:30 BP 132/72 07/19/24 09:30 Pulse Ox 99 07/19/24 09:30 Oxygen Delivery Method Room Air 07/19/24 09:30 BMI result Body Mass Index 24.2 Const Other: Const General: well developed; No acute distress Nutritional Appearance: well nourished Orientation/consciousness: patient oriented x3 HEENT Head: Yes normocephalic and Yes atraumatic Eyes General: appearance normal, both eyes and all related structures Pupils: Equal, round and reactive pupils present EOM: EOMs intact bilaterally Resp Effort & Inspection: normal respiratory effort Auscultation: clear to auscultation bilaterally Cardio Rate: regular rate Rhythm: regular rhythm Heart sounds: S1 normal heart sound present, S2 normal heart sound present, no gallops, no murmurs and no rubs Bruits: no abdominal aortic bruits and no carotid bruits Neuro General: patient oriented x3 and gait normal, no focal neuro deficit Cranial nerves: Yes Equal, round and reactive pupils present Musc Lumbar spine and right lower back nontender to palpation, negative straight leg raises bilaterally No CVA tenderness Psych Affect: normal affect Assessment & Plan Assessment & Plan (1) Back pain: Code(s): M54.9 - Dorsalgia, unspecified Plan: Intermittent on and off right-sided lower back pressure her several months; improves after a bowel movement and increased physical activities. No fall, injury, trauma. No symptoms Lumbar spine and right lower back nontender to palpation, negative straight leg raises bilaterally No CVA tenderness Will check urinalysis go to x-ray of her lumbar spine and pelvis May take Tylenol ibuprofen for pain or discomfort Warm/cool compresses, stretching as tolerable, and massage encouraged Follow-up with worsening or new symptoms Verbalized understanding and agreed with the treatment plan Orders: Orders UA CC w/rflx Micro + Cult Today M54.9 - Dorsalgia, unspecified XR lumbar spine 2-3V Today M54.9 - Dorsalgia, unspecified XR pelvis 1-2V Today M54.9 - Dorsalgia, unspecified Coding Level of Care Code Est Pt Level 3 (66662) Diagnoses Back pain M54.9
[2024-07-19 09:30] VITALS: BP 132/72; PULSE 69; RESP 15; O2SAT 99; BMI 24.2
== END 2024-07-19 10:22 | disposition home or self-care (01) ==
PROVIDERS: PCP Family Medicine; Visit Provider Nurse Practitioner Family
DX: M54.9 Dorsalgia, unspecified (principal)

== ENCOUNTER 2024-07-19 09:26 | Outpatient (REF) | payer OTHER, SELFPAY ==
--- NOTE | ~2024-07-19 | XR_ITS ---
EXAMINATION: XR PELVIS XR LUMBAR SPINE CLINICAL INFORMATION: Back pain. COMPARISON: None available. TECHNIQUE: 3 views of the lumbar spine. AP view of the pelvis. FINDINGS: PELVIS: Mild degenerative changes in bilateral hips. Bilateral sacroiliac joints are maintained. Multiple ovoid densities predominately in the right hemipelvis measuring up to 1 cm of uncertain etiology, possibly related to ingested material such as pills, internal calcifications or other etiology. LUMBAR SPINE: Mild dextroscoliosis of the lumbar spine. Straightening of the normal lumbar lordosis. A 1 cm calcification in the partially imaged right upper quadrant, possibly related to the gallbladder or kidney. Possible 3 mm calculus overlying the upper pole left kidney. Ultrasound could be considered for further evaluation. Advanced multilevel facet arthritis in the guj-ib-qegst lumbar spine. Moderate multilevel lumbar spondylosis. Moderate loss of disc space height at L5-S1. XR/XR lumbar spine 2-3V IMPRESSION: 1. Mild degenerative changes in bilateral hips. 2. Moderate multilevel lumbar spondylosis. 3. Advanced multilevel facet arthritis in the mid to lower lumbar spine. 4. A 1 cm calcification partially imaged right upper quadrant, possibly related to the gallbladder or kidney. Possible 0.3 cm calculus overlying the upper pole left kidney. Ultrasound could be considered for further evaluation. Electronically signed by: Pita Spencer MD 08/01/2024 08:57 AM EDT RP
--- NOTE | ~2024-07-19 | XR_ITS ---
EXAMINATION: XR PELVIS XR LUMBAR SPINE CLINICAL INFORMATION: Back pain. COMPARISON: None available. TECHNIQUE: 3 views of the lumbar spine. AP view of the pelvis. FINDINGS: PELVIS: Mild degenerative changes in bilateral hips. Bilateral sacroiliac joints are maintained. Multiple ovoid densities predominately in the right hemipelvis measuring up to 1 cm of uncertain etiology, possibly related to ingested material such as pills, internal calcifications or other etiology. LUMBAR SPINE: Mild dextroscoliosis of the lumbar spine. Straightening of the normal lumbar lordosis. A 1 cm calcification in the partially imaged right upper quadrant, possibly related to the gallbladder or kidney. Possible 3 mm calculus overlying the upper pole left kidney. Ultrasound could be considered for further evaluation. Advanced multilevel facet arthritis in the bum-dl-xdefk lumbar spine. Moderate multilevel lumbar spondylosis. Moderate loss of disc space height at L5-S1. XR/XR pelvis 1-2V IMPRESSION: 1. Mild degenerative changes in bilateral hips. 2. Moderate multilevel lumbar spondylosis. 3. Advanced multilevel facet arthritis in the mid to lower lumbar spine. 4. A 1 cm calcification partially imaged right upper quadrant, possibly related to the gallbladder or kidney. Possible 0.3 cm calculus overlying the upper pole left kidney. Ultrasound could be considered for further evaluation. Electronically signed by: Pita Spencer MD 08/01/2024 08:57 AM EDT RP
== END 2024-07-19 09:27 | disposition home or self-care (01) ==
LOC: HO.XRAY 09:26
PROVIDERS: PCP Family Medicine; Referring Provider Nurse Practitioner Family; Visit Provider Nurse Practitioner Family
DX: M54.9 Dorsalgia, unspecified (principal)
CPT/HCPCS: 72100; 72170; 99212

== ENCOUNTER 2024-07-19 10:00 | Outpatient (REF) | payer OTHER, SELFPAY ==
[2024-07-19 11:24] LABS: Appearance Urine Clear; Color Urine Yellow; Glucose Urine UA Negative (Negative); Leukocyte Esterase Urine Negative (Negative); Nitrite Urine Negative (Negative); PH 7.5 (5.0-9.0); Urine Blood Negative (Negative); Urine Ketones Negative (Negative); Urine Protein Negative (Neg-Trace)
== END 2024-07-19 10:01 | disposition home or self-care (01) ==
LOC: HO.WFDLDS 10:00
PROVIDERS: Visit Provider Nurse Practitioner Family
DX: M54.9 Dorsalgia, unspecified (principal)
CPT/HCPCS: 81003

== ENCOUNTER 2024-10-22 11:51 | Outpatient (REF) | payer OTHER, SELFPAY | END 2024-10-22 11:52 | disposition home or self-care (01) | LOC: HO.MAMMO 11:51 | PROVIDERS: PCP Family Medicine; Visit Provider Family Medicine | DX: Z12.31 Encounter for screening mammogram for malignant neoplasm of breast (principal) | CPT/HCPCS: 77063; 77067 ==

== ENCOUNTER → 2024-10-22 12:00 | Outpatient (BNV) | payer OTHER, SELFPAY | PROVIDERS: PCP Family Medicine; Visit Provider Internal Medicine | DX: Z12.31 Encounter for screening mammogram for malignant neoplasm of breast (principal) | CPT/HCPCS: 77063; 77067 ==

== ENCOUNTER 2024-11-22 07:41 | Outpatient (REF) | payer OTHER, SELFPAY ==
[2024-11-22 11:35] LABS: Appearance Urine Clear; Color Urine Yellow; Glucose Urine UA Negative (Negative); Leukocyte Esterase Urine Negative (Negative); Nitrite Urine Negative (Negative); PH 6.5 (5.0-9.0); Specific Gravity - Urine <= 1.005 (1.005-1.025); Urine Blood Negative (Negative); Urine Ketones Negative (Negative); Urine Protein Negative (Neg-Trace)
== END 2024-11-22 07:42 | disposition home or self-care (01) ==
LOC: HO.WFDLDS 07:41
PROVIDERS: Visit Provider Family Medicine
DX: Z00.00 Encounter for general adult medical examination without abnormal findings (principal)
CPT/HCPCS: 81003

== ENCOUNTER 2024-11-29 08:50 | Outpatient (AMB) | payer OTHER, SELFPAY ==
--- NOTE | 2024-11-29 09:08 | A.OFFPC_ITS ---
Vital Signs 11/29/24 09:12 Height 5 ft 8 in Weight 164 lb 4 oz BMI 25.0 BP 120/60 Blood Pressure Location Lt brachial Position Sitting Respiration 16 Pulse 71 Pulse Source Pulse Oximeter Temp 97.9 F Temp Source Oral Pulse Oximetry (%) 99 Oxygen Delivery Method Room Air Intake Visit Reasons: Annual Intake Note: annual Is last menstrual period known: No Post menopausal: Yes Patient : No Allergies No Known Allergies Allergy (Verified 11/29/24 09:10) Tobacco use date assessed: 11/29/24 Dental Screening Dental Screen Date: 11/29/24 Did you have a dental visit in the last 12 months?: Yes Did you have a dental problem in the last 6 months where you did not have access to dental care?: No HPI Annual HPI Details 59 y/o female presents for a CPE with f/ u labs and health maintenance. No recent labs to review. She notes her last colonoscopy was about 2 years ago. She states they had wanted to follow up in about 3 years. Last mammogram September 2023 which was normal. She is up to date with her pap smear. She is on artovastatin 10mg for her lipids. Back x-ray shows degenerative changes. HPI Comments History of Present Illness Details Documentation assistance for Antonio Conner MD, was provided by Rafiq Hannah,? [employer] on 11/29/2024 at 10:07 AM SUSHIL. I, Dr. Conner, have read, observed, and verified documentation. ?? PFSH Medical History Thyroid cancer Surgical History H/O colonoscopy H/O thyroidectomy History of lithotripsy Family History Mother Leukemia Father Leukemia Paternal Grandmother History of breast cancer Social History Household Members: Spouse and Children Housing: House Alcohol intake: never Patient Tobacco Use Status: Never used Tobacco e-Cigarette/Vaping Use: Never Used service: No Current occupational status: retired Cognitive needs: No Hearing needs: No Vision needs: Yes (Prescriprion glasses) Questionnaire PHQ-9 Over the last 2 weeks, how often have you been bothered by any of the following problems? 1. Little interest or pleasure in doing things: not at all 2. Feeling down, depressed, or hopeless: not at all 3. Trouble falling or staying asleep, or sleeping too much: not at all 4. Feeling tired or having little energy: not at all 5. Poor appetite or overeating: not at all 6. Feeling bad about yourself - or that you are a failure or have let yourself or your family down: not at all 7. Trouble concentrating on things, such as reading the newspaper or watching television: not at all 8. Moving or speaking so slowly that other people could have noticed. Or the opposite - being so fidgety or restless that you have been moving around a lot more than usual: not at all 9. Thoughts that you would be better off or of hurting yourself in some way: not at all Total score: 0 Source: Developed by Drs. Tommy Carter, Salome Mcguire, Familia Tolentino and colleagues, with an educational jarrod from [employer]. Thrive Questionnaire Date Thrive assessed: 11/29/24 I am a: Patient What is your living situation today?: I have a steady place to live Within the past 12 months, did the food you bought not last and you didn't have the money to get more?: Never true Within the past 12 months, did you worry whether your food would run out before you got money to buy more?: Never true Do you have trouble paying for medicines?: No Do you have trouble getting transportation to medical appointments?: No Do you have trouble paying your heating and electricity bill?: No Do you have trouble taking care of your child, family member or friend?: No Do you have trouble with day-to-day activities such as bathing, preparing meals, shopping, managing finances, etc.?: No Are you currently unemployed and looking for a job?: No Are you interested in more education?: No Please select the resources that you would like help with: None Currently or been in a relationship where the following occur: No concerns reported THRIVE Score: 0 AUDIT C Alcohol Use Questionnaire (AUDIT-C) 1. How often do you have a drink containing alcohol?: 2-3 times a week 2. How many drinks containing alcohol do you have on a typical day when you are drinking?: 3 or 4 3. How often do you have six or more drinks on one occasion?: Never Total Score: 4 COOPER-7 AMB Questionnaire COOPER-7 Date COOPER - 7 assessed: 11/29/24 Feeling nervous, anxious, or on edge: 0 = Not at all Not being able to stop or control worryin = Not at all Worrying too much about different things: 0 = Not at all Trouble relaxin = Not at all Being so restless that it is hard to sit still: 0 = Not at all Becoming easily annoyed or irritable: 0 = Not at all Feeling afraid as if something awful might happen: 0 = Not at all Total COOPER-7 score (0-4 normal; 5-9 mild; 10-14 moderate; 15-21 severe): 0 Source: Developed by Drs. Tommy Carter, Salome Mcguire, Familia Tolentino and colleagues, with an educational jarrod from [employer]. Review of Systems Const Denies chills, Denies fatigue, Denies fever(s), Denies headache(s) and Denies weakness Eyes Denies change in vision ENT Denies dizziness, Denies headache(s), Denies hearing loss, Denies nasal con gestion, Denies sinus pain, Denies sinus pressure and Denies sore throat Card Denies chest pain, Denies lightheadedness, Denies dyspnea and Denies other (palpitations) Resp Denies cough, Denies dyspnea and Denies wheezing GI Denies abdominal pain, Denies melena, Denies hematochezia, Denies change in bowel habits, Denies dyspepsia and Denies nausea Denies hematuria and Denies dysuria Musc Denies abnormal gait, Denies myalgias, Denies arthralgias, Denies numbness and Denies tingling Skin/Breast Denies rash, Denies unusual bruising and Denies wounds Neuro Denies abnormal gait, Denies dizziness, Denies headache(s), Denies memory loss, Denies numbness, Denies Sensory deficit (Neuro), Denies tingling and Denies weakness Psych Denies anxiety, Denies depression and Denies memory loss Endo Denies cold intolerance, Denies fatigue, Denies heat intolerance, Denies polydipsia and Denies polyuria Rupert/Lymph Denies easy bleeding and Denies easy bruising Aller/Immun Denies wheezing Physical exam (Primary Care) Vital Signs: Last Vital Signs Temp 97.9 F 11/29/24 09:12 Pulse 71 11/29/24 09:12 Resp 16 11/29/24 09:12 BP 120/60 11/29/24 09:12 Pulse Ox 99 11/29/24 09:12 Oxygen Delivery Method Room Air 11/29/24 09:12 BMI result Body Mass Index 25.0 Tobacco/Smoking Status: Tobacco use Status Tobacco use date assessed 11/29/24 11/29/24 09:16 Patient Tobacco Use Status Never used Tobacco 11/29/24 09:08 e-Cigarette/Vaping Use Never Used 11/29/24 09:08 PHQ-9: PHQ-9 Score PHQ-9: Total score 0 11/29/24 09:49 Thrive Assessment: Date of Thrive Assessment Date Thrive assessed 11/29/24 11/29/24 09:16 Currently or been in a relationship where the following occur: No concerns reported Const General: no acute distress, well developed, alert and awake Nutritional Appearance: well nourished Orientation/consciousness: patient oriented x3 HENMT Head: Yes normocephalic and Yes atraumatic Ears: hearing grossly normal bilaterally and TM's normal bilaterally General nose exam: Normal external nose present and Normal nares present Mouth: Normal oral and palatal mucosa present and moist mucous membranes Teeth and gingiva: dentition normal Throat: Yes posterior oropharynx normal Eyes General: appearance normal, both eyes and all related structures Pupils: Equal, round and reactive pupils present and Pupil accommodation reflex normal EOM: EOMs intact bilaterally Neck Neck: Yes normal visual inspection, Yes no lymphadenopathy and Yes trachea midline Thyroid: Thyroid normal Carotids: no bruits Lymphatic: no lymphadenopathy noted Chest Chest palpation & inspection: normal inspection of the chest Resp Effort & Inspection: normal respiratory effort Auscultation: clear to auscultation bilaterally Cardio Rate: regular rate Rhythm: regular rhythm Heart sounds: S1 normal heart sound present, S2 normal heart sound present, no gallops, no murmurs and no rubs Bruits: no abdominal aortic bruits and no carotid bruits GI Palpation (GI): No Abdominal aortic bruit present, Soft to palpation, nontender, No hepatosplenomegaly present and No Rebound tenderness present Auscultation: normal bowel sounds General: Yes no CVA tenderness Back/Spine/Pelvis Back: no CVA tenderness Cervical Spine: cervical ROM normal and No Cervical spine tenderness Thoracic/Lumbar Spine: thoraco-lumbar ROM normal, No pain with thoraco-lumbar ROM, No thoracic spinal tenderness and No lumbar spinal tenderness Skin Lesions: no lesions Rashes: no rashes Trauma: no lacerations or abrasions Wounds: no wounds Nails: normal Neuro General: patient oriented x3 Cranial nerves: Yes Equal, round and reactive pupils present Cognition (Neuro): normal cognition Gait exam (Neuro): Normal gait present Motor exam (neuro): 5/5 motor strength present throughout Sensory Exam: No Sensory deficit (Neuro) Deep tendon reflexes (DTR's): Right patellar reflex intensity grade: 2+ and Left patellar reflex intensity grade: 2+ Extrem General: Yes normal to inspection and No edema Psych Appearance: grossly normal Affect: normal affect Attitude: cooperative Thought process: Normal thought process present Coding Level of Care Code Est Pt Level 3 (55520) New Pt Prev Care 40-64y(73737) Diagnoses Adult general medical exam Z00.00 Hyperlipidemia E78.5 H/O thyroidectomy E89.0 Encounter for follow-up surveillance of skin cancer Z08; Z85.828 Breast cancer screening by mammogram Z12.31 Screening for cervical cancer Z12.4 Screening for colon cancer Z12.11 Osteoporosis M81.0 Back pain M54.9 Assessment & Plan Assessment & Plan (1) Adult general medical exam: Code(s): Z00.00 - Encounter for general adult medical examination without abnormal findings Category: Medical Plan: 59-year-old?female?presents?for?complete?physical?exam Encouraged?healthy?diet?with?active?lifestyle?and?plenty?of?exercise (2) Hyperlipidemia: Code(s): E78.5 - Hyperlipidemia, unspecified Category: Medical Plan: Patient?is?on?atorvastatin?10?mg?daily. She?will?get?labs?drawn?and?we?will?follow- up?at?telemedicine?appointment?in?few?weeks (3) H/O thyroidectomy: Comment: unknown if partial or all Code(s): E89.0 - Postprocedural hypothyroidism Category: Surgical Plan: Checking?TSH Patient?is?followed?by?endocrinology[place]in[place],?Dr. Bennett (4) Encounter for follow-up surveillance of skin cancer: Code(s): Z08 - Encounter for follow-up examination after completed treatment for malignant neoplasm; Z85.828 - Personal history of other malignant neoplasm of skin Category: Medical Plan: Patient?has?appointment?with?new?[place]?dermatology?and?has?had?precancerous?le sions?on?arm Referred (5) Breast cancer screening by mammogram: Code(s): Z12.31 - Encounter for screening mammogram for malignant neoplasm of breast Category: Medical Plan: Recent?mammogram?negative?for?malignancy Will?continue?annual?screening (6) Screening for cervical cancer: Code(s): Z12.4 - Encounter for screening for malignant neoplasm of cervix Category: Medical Plan: Pap?smear?last?year?and?patient?is?followed?by?[facility]?OBGYN Follow-up?as?recommended Up-to-date (7) Screening for colon cancer: Code(s): Z12.11 - Encounter for screening for malignant neoplasm of colon Category: Medical Plan: Followed?by??[facility] Colonoscopy?2?years?ago?in?advised?to?follow-up?in?5?years. Up-to-date (8) Osteoporosis: Code(s): M81.0 - Age-related osteoporosis without current pathological fracture Category: Medical Plan: Bone?density?in?2022?was?positive?for?osteoporosis She?will?be?due?again?this?year?for?DEXA?scan If?worsening,?will?discuss?bisphosphonates?or?other?treatments (9) Back pain: Code(s): M54.9 - Dorsalgia, unspecified Category: Medical Plan: X-rays?show?degenerative?changes Likely?a?combination?of?arthritis?and?chronic?muscle?strain Recommended?physical?therapy?but?patient?would?like?to?try?exercises?on?her?own? 1st Also?recommended?naproxen?b.i.d. Ice/heat?topicals Checking?inflammatory?markers If?not?improving,?will?readdress?physical?therapy?and?if?still?not?improving?rosina l?refer?to?physiatry?or?Ortho Orders: Orders Erythrocyte Sedimentation Rate Today M54.9 - Dorsalgia, unspecified CRP High Sensitivity Today M54.9 - Dorsalgia, unspecified MM tomosynthesis screening BI Today Z12.31 - Encounter for screening mammogram for malignant neoplasm of breast XR DEXA axial skeleton Today M81.0 - Age-related osteoporosis without current pathological fracture Rheumatoid Factor Today M54.9 - Dorsalgia, unspecified Referrals Dermatology Referral E89.0 - Postprocedural hypothyroidism Endocrinology Referral E89.0 - Postprocedural hypothyroidism
[2024-11-29 09:12] VITALS: BP 120/60; PULSE 71; RESP 16; TEMP 36.6; O2SAT 99; BMI 25.0
== END 2024-11-29 10:12 | disposition home or self-care (01) ==
PROVIDERS: PCP Family Medicine; Visit Provider Family Medicine
DX: Z00.00 Encounter for general adult medical examination without abnormal findings (principal); E78.5 Hyperlipidemia, unspecified; M54.9 Dorsalgia, unspecified; E89.0 Postprocedural hypothyroidism; M81.0 Age-related osteoporosis without current pathological fracture; Z08 Encounter for follow-up examination after completed treatment for malignant neoplasm; Z85.828 Personal history of other malignant neoplasm of skin; Z12.31 Encounter for screening mammogram for malignant neoplasm of breast; Z12.11 Encounter for screening for malignant neoplasm of colon

== ENCOUNTER → 2024-11-29 08:50 | Outpatient (BNVA) | payer OTHER, SELFPAY | PROVIDERS: PCP Family Medicine; Visit Provider Family Medicine | DX: Z00.00 Encounter for general adult medical examination without abnormal findings (principal); Z08 Encounter for follow-up examination after completed treatment for malignant neoplasm; E78.5 Hyperlipidemia, unspecified; E89.0 Postprocedural hypothyroidism; M81.0 Age-related osteoporosis without current pathological fracture; M54.9 Dorsalgia, unspecified; Z85.828 Personal history of other malignant neoplasm of skin | CPT/HCPCS: 99212 ==

== ENCOUNTER 2024-12-11 07:49 | Outpatient (REF) | payer OTHER, SELFPAY ==
[2024-12-11 11:04] LABS: Appearance Urine Clear; Color Urine Yellow; Glucose Urine UA Negative (Negative); Leukocyte Esterase Urine Negative (Negative); Nitrite Urine Negative (Negative); PH 6.5 (5.0-9.0); Specific Gravity - Urine <= 1.005 (1.005-1.025); Urine Blood Negative (Negative); Urine Ketones Negative (Negative); Urine Protein Negative (Neg-Trace)
[2024-12-11 11:24] LABS: Rheumatoid Factor < 13.0 IU/mL (<15.0)
[2024-12-11 11:35] LABS: Alanine Aminotransferase 17 U/L (0-31); Albumin Level 4.6 g/dL (3.5-5.0); Alkaline Phosphatase 78 U/L (39-117); Anion Gap 10 (12-20); Aspartate Amino Transferase 22 U/L (5-31); Blood Urea Nitrogen 19 mg/dL (9-16); Calcium 9.6 mg/dL (8.4-10.2); Carbon Dioxide 29 mmol/L (22-29); Chloride 103 mmol/L (96-108); Cholesterol 176 mg/dL (<200); Estimated Glomerular Filt Rate 57; Glucose Fasting 100 mg/dL (60-99); HDL Cholesterol 59 mg/dL (>40); LDL Cholesterol Calculated 86 mg/dL (<100); Potassium 3.9 mmol/L (3.3-5.1); Sodium 138 mmol/L (135-145); Total Protein 7.8 g/dL (6.5-8.0); Triglycerides 159 mg/dL (<150)
[2024-12-11 11:41] LABS: Free T4 (Free Thyroxine) 1.33 ng/dL (0.71-1.85); Thyroid Stimulating Hormone 3.66 uIU/mL (0.32-4.0)
[2024-12-11 11:55] LABS: Erythrocyte Sedimentation Rate 2 MM/HR (0-20)
[2024-12-11 13:15] LABS: Creatinine Urine 12.04 mg/dL; Microalbumin Urine < 5.0 mg/L
[2024-12-12 23:29] LABS: CRP High Sensitivity 0.9 mg/L
[2024-12-13 01:04] LABS: Triiodothyronine T3 Total 68 ng/dL (76-181)
== END 2024-12-11 07:50 | disposition home or self-care (01) ==
LOC: HO.WFDLDS 07:49
PROVIDERS: Visit Provider Family Medicine
DX: Z00.00 Encounter for general adult medical examination without abnormal findings (principal); M54.9 Dorsalgia, unspecified; E03.9 Hypothyroidism, unspecified; I10 Essential (primary) hypertension
CPT/HCPCS: 36415; 80053; 80061; 81003; 82043; 82570; 84439; 84443; 84480; 85652; 86141; 86431

== ENCOUNTER 2024-12-18 12:38 | Outpatient (AMB) | payer OTHER, SELFPAY ==
--- NOTE | 2024-12-18 12:35 | A.OFFPC_ITS ---
Intake Visit Reasons: f/u CPE-labs via telemedicine Intake Note: lab review Allergies No Known Allergies Allergy (Verified 12/18/24 12:35) Tobacco use date assessed: 11/29/24 Dental Screening Dental Screen Date: 11/29/24 HPI f/u CPE-labs via telemedicine HPI Details 59 y/[facility] female [facility] Labs drawn 12/11/24. Reviewed labs with pt. Fasting glucose 100. Triglycerides 159. TC 176. LDL 86. HDL 59. She is on artovastatin 10mg daily. PFSH Medical History Thyroid cancer Surgical History H/O colonoscopy H/O thyroidectomy History of lithotripsy Family History Mother Leukemia Father Leukemia Paternal Grandmother History of breast cancer Social History Household Members: Spouse and Children Housing: House Alcohol intake: never Patient Tobacco Use Status: Never used Tobacco e-Cigarette/Vaping Use: Never Used service: No Current occupational status: retired Cognitive needs: No Hearing needs: No Vision needs: Yes (Prescriprion glasses) Questionnaire Thrive Questionnaire Date Thrive assessed: 11/29/24 COOPER-7 AMB Questionnaire COOPER-7 Date COOPER - 7 assessed: 11/29/24 Source: Developed by Drs. Tommy Carter, Salome Mcguire, Familia Tolentino and colleagues, with an educational jarrod from [employer]. Review of Systems Const Denies chills, Denies fatigue, Denies fever(s), Denies headache(s) and Denies weakness ENT Denies dizziness and Denies headache(s) Card Denies dyspnea Resp Denies cough, Denies dyspnea, Denies wheezing and Denies other (shortness of breath) Musc Denies numbness and Denies tingling Neuro Denies dizziness, Denies headache(s), Denies numbness, Denies tingling and Denies weakness Psych Denies anxiety and Denies depression Endo Denies fatigue Aller/Immun Denies wheezing Physical exam (Primary Care) Tobacco/Smoking Status: Tobacco use Status Tobacco use date assessed 11/29/24 12/18/24 12:36 Patient Tobacco Use Status Never used Tobacco 12/18/24 12:36 e-Cigarette/Vaping Use Never Used 12/18/24 12:36 Thrive Assessment: Date of Thrive Assessment Date Thrive assessed 11/29/24 12/18/24 12:36 Telehealth Telehealth Telehealth Platform: Telephone Location of provider rendering services: practice address Location of patient: address on file Patient Identification confirmed using: Name, : Yes Telehealth method: voice only Patient verbally consented to treatment: Yes Patient verbally consented to billing insurance company: Yes Patient informed of any privacy concerns related to visit: Yes Minutes spent on Phone/Video with Pt.: 7 Coding Level of Care Code Tele Est Pt Level 2 (73069) Diagnoses Hyperlipidemia E78.5 Back pain M54.9 Elevated fasting glucose R73.01 Assessment & Plan Assessment & Plan (1) Hyperlipidemia: Code(s): E78.5 - Hyperlipidemia, unspecified Category: Medical Plan: TC?and?LDL?cholesterol?much?improved?with?atorvastatin. HDL?is within?normal?limits Triglycerides?have?elevated?and?this?coincides?with?a?mild?elevation?in?blood?turner gar?is?well Continue?atorvastatin Encouraged?diet?low?in?saturated?fats?and?c holesterol?as?well?sugars?and?starches (2) Back pain: Code(s): M54.9 - Dorsalgia, unspecified Category: Medical Plan: Had?encouraged?exercise?and?ibuprofen Erythrocyte?sedimentation?rate?and?CRP?were?negative Patient?notes?that?exercise?and?ibuprofen?are?helping.??He?can?continue?this (3) Elevated fasting glucose: Code(s): R73.01 - Impaired fasting glucose Category: Medical Plan: As?above Orders: Orders Free T4 (Free Thyroxine) Today E03.9 - Hypothyroidism, unspecified, E89.0 - Postprocedural hypothyroidism Thyroid Stimulating Hormone Today E03.9 - Hypothyroidism, unspecified, E89.0 - Postprocedural hypothyroidism Comprehensive [place]. Panel Fast Today E78.5 - Hyperlipidemia, unspecified, Z00.00 - Encounter for general adult medical examination without abnormal findings Lipid Panel Today E78.5 - Hyperlipidemia, unspecified, Z00.00 - Encounter for general adult medical examination without abnormal findings Hemoglobin A1c Today R73.01 - Impaired fasting glucose Triiodothyronine T3 Total Today E03.9 - Hypothyroidism, unspecified, E89.0 - Po stprocedural hypothyroidism
== END 2024-12-18 16:10 | disposition home or self-care (01) ==
LOC: HO.HMCFM 12:38
PROVIDERS: PCP Family Medicine; Visit Provider Family Medicine
DX: E78.5 Hyperlipidemia, unspecified (principal); M54.9 Dorsalgia, unspecified; R73.01 Impaired fasting glucose

== ENCOUNTER 2025-05-21 07:51 | Outpatient (AMB) | payer OTHER, SELFPAY ==
--- OUTSIDE RECORDS SUMMARY | 2025-05-21 07:53 | XMS_ITS | Clinical Summary ---
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 3 Active levothyroxine (SYNTHROID, LEVOTHROID) 112 MCG tabletIndications:P ostoperative hypothyroidism Take 1 tablet (112 mcg total) by mouth every morning. 90 tablet 3 5 Active Active Problems Problem Noted Date Diagnosed Date Postoperative hypothyroidism 02/28/2023 Assessment & Plan (03/09/2025 6:08 PM EDT): Clinically & biochemically euthyroid. Reports good consistency taking rx appropriately. Will repeat labs yearly, sooner prn symptoms of thyroid dysfunction or > 10-15# weight change, or as otherwise clinically indicated. Assessment & Plan (02/29/2024 10:03 AM EDT): Clinically & biochemically euthyroid. Reports good consistency taking rx appropriately. Will repeat labs yearly, sooner prn symptoms of thyroid dysfunction or > 10-15# weight change, or as otherwise clinically indicated. Assessment & Plan (02/28/2023 10:34 AM EDT): Clinically euthyroid. Reports good consistency taking rx appropriately. Will check labs & adjust rx as appropriate. To call/message via portal if hasn't heard from me with results within 1-2 weeks. If levels normal, will repeat labs yearly, sooner prn symptoms of thyroid dysfunction or > 10-15# weight change, or as otherwise clinically indicated. Malignant neoplasm of thyroid gland 02/28/2023 Overview (02/28/2023): S/p hemithyroidectomy 1999, completion & EID 2004. Assessment & Plan (03/09/2025 6:08 PM EDT): Has had no evidence of residual or recurrent dz, thyroglobulin undetectable. Is at very low risk of recurrence. Target TSH in the lower 1/2 of the normal range. Assessment & Plan (02/29/2024 10:04 AM EDT): Has had no evidence of residual or recurrent dz, thyroglobulin undetectable. Is at very low risk of recurrence. Target TSH in the lower 1/2 of the normal range. Assessment & Plan (02/28/2023 10:36 AM EDT): Has had no evidence of residual or recurrent dz. Per last years assessment & plan, very low risk of recurrence. Target TSH in the lower 1/2 of the normal range. Age-related osteoporosis wit hout current pathological fracture 02/28/2023 Assessment & Plan (03/09/2025 6:10 PM EDT): No interval falls or fractures. Getting a good amount of calcium. Vitamin D level @ target. Bone density had been in a fairly stable range given limitations @ different machines. Had follow up bone density scheduled in October. Assessment & Plan (02/29/2024 10:06 AM EDT): Vitamin D normal. Getting a good amount of calcium. Bone density is in a fairly stable range given limitations @ different machines. Will continue to monitor. Assessment & Plan (02/28/2023 10:37 AM EDT): Getting a good amount of calcium via diet/supplement. No falls or fractures. Believes due for DEXA, will have PCP schedule it to be done @ [facility] w/ cc results here (previous in [facility] so some limitations to comparison & this will serve as new, local baseline. Encounters Date Type Department Care Team Description 03/07/2025 9:40 AM EDT Office Visit [facility] [address] [place] [address] Radha Pro MD Postoperative hypothyroidism (Primary Dx); Age-related osteoporosis without current pathological fracture; Malignant neoplasm of thyroid gland 02/26/2025 2:11 PM EDT - 02/26/2025 11:59 PM EDT Hospital Encounter [facility] [address] [place] [address] Radha Pro MD Discharge Disposition: Home or Self Care 02/23/2025 Refill [facility] [address] [place] [address] Radha Pro MD Medication Refill from Last 3 Months Social History Tobacco Use Types Packs/Day Years Used Date Smoking Tobacco: Never Passive Smoke Exposure: Never Smokeless Tobacco: Never Tobacco Cessation:Counseling Given: Not Answered Alcohol Use Standard Drinks/Week Comments Yes 0 (1 standard drink = 0.6 oz pur e alcohol) weekends Education Answer Date Recorded Are you interested in more education? Not on jerrell e 02/25/2023 Are you concerned about learning? Not on file 02/25/2023 No 02/25/2023 No 02/25/2023 Digital Access Answer Date Recorded No 03/29/2023 No 03/29/2023 Reliable internet access at home? Not on file 03/29/2023 Device with a working camera? Not on file Comments Unknown Sex and Gender Information Value Date Recorded Sex Assigned at Not on file Legal Sex Female 1:23 PM EST Gender Identity Not on file Sexual Orientation Not on file Last Filed Vital Signs Vital Sign Reading Time Taken Comments Blood Pressure 115/70 03/07/2025 9:33 AM EDT Pulse 67 03/07/2025 9:33 AM EDT Temperature 36.4 C (97.6 F) 02/28/2023 9:44 AM EDT Respiratory Rate - - Oxygen Saturation 97% 03/07/2025 9:33 AM EDT Inhaled Oxygen Concentration - - Weight 72.1 kg (159 lb) 03/07/2025 9:33 AM EDT Height 172.7 cm (5' 8 ) 03/07/2025 9:33 AM EDT Body Mass Index 24.18 03/07/2025 9:33 AM EDT Plan of Treatment Upcoming Encounters Date Type Department Care Team (Late st Contact Info) Description 03/12/2026 10:00 AM EDT Office Visit [facility] [address] [place] [address] [place] [address] Radha Pro MD [address] [place] [phone] [email or web address] Maintenance Due Date Last Done Comments Adult Td,Tdap Booster 1964 LIPID PANEL 1964 DEPRESSION SCREENING 1976 HEPATITIS C SCREENING 1982 HIV ONE-TIME SCREENING (18-6 5 YEARS) 1982 PNEUMOCOCCAL VACCINES (50+ years) (1 of 2 - PCV) 1983 ZOSTER VACCINES (1 of 2) 1983 PAP SMEAR 1985 MAMMOGRAM 2004 COLOGUARD 2009 COLONOSCOPY 2009 COLORECTAL CANCER SCREENING 2009 FIT TEST 2009 FOBT 2009 SIGMOIDOSCOPY 2009 VIRTUAL COLONOSCOPY 2009 COVID-19 VACCINE ( - 2023-2 5 season) 2024 TSH LEVEL 02/26/2026 02/26/2025, 02/28/2023 RSV VACCINE (1 - 1-dose 75+ series) 2039 SMOKING STATUS SCREENING (On ce After 26 Yrs) Completed 03/07/2025 HEPATITIS A VACCINES Aged Out No long er eligible based on patient's age to complete this topic HIB VACCINES Aged Out No longer eligi ble based on patient's age to complete this topic MENINGOCOCCAL VACCINES (ACWY) Aged Out No longer eligible based on patient's age to complete this topic MENINGOCOCCAL VACCINES (B) Aged Out N o longer eligible based on patient's age to complete this topic Medical Devices Not on file Procedures Procedure Name Priority Date/Time Associated Diagnosis Comments TSH WITH REFLEX Routine 02/26/2025 2:27 PM EDT Postoperative hypothyroidism THYROGLOBULIN ANTIBODY Routine 02/26/2025 2:27 PM EDT Malignant neoplasm of thyroid gland THYROGLOBULIN, TUMOR MARKER Routine 02/26/2025 2:27 PM EDT Malignant neoplasm of thyroid gland COMPREHENSIVE METABOLIC PANEL Routine 02/26/2025 2:27 PM EDT Age-related osteoporosis without current pathological fracture 25-OH VITAMIN D Routine 02/26/2025 2:27 PM EDT Age-related osteoporosis without current pathological fracture COLLAGEN TYPE 1B-TELOPEPTIDE, BLOOD Routine 02/26/2025 2:27 PM EDT Age-related osteoporosis without current pathological fracture PARATHYROID HORMONE (PTH) Routine 02/26/2025 2:27 PM EDT Age-related osteoporosis without current pathological fracture from Last 3 Months Results * Thyroglobulin antibody (02/26/2025 2:27 PM EDT) THYROGLOBULIN ANTIBODY, S <1.8 <4.0 IU/mL [facility] Comment: (NOTE) ADDITIONAL INFORMATION PLEASE NOTE: The given thyroglobulin antibody (TgAb) reference cutoff of <4.0 IU/mL is for the evaluation of autoimmune thyroiditis. A cutoff of <1.8 IU/mL may be more suitable for the detection of potential thyroglobulin antibody (TgAb) interference in thyroglobulin immunoassays. The thyroglobulin antibody testing method is an immunoenzymatic assay manufactured by [employer] and performed on the [employer] DXI 800. Values obtained from different assay methods or kits may be different and cannot be used interchangeably. The results cannot be interpreted as absolute evidence for the presence or absence of malignant disease. Blood 02/26/2025 2:27 PM EDT 02/26/2025 2:35 PM EDT Radha Pro MD LAB BLOOD ORDERABLES F inal Result Performing Organization Address City/[facility]/ZIP Co de Phone Number [facility]PATH [address] [place] [address] * Collagen type 1b-telopeptide, blood (02/26/2025 2:27 PM EDT) Pathologist [facility] Collagen CTx 407 pg/mL [facility] Comment: (NOTE) REFERENCE VALUE [phone] (18-29 y) 150-635 (30-39 y) 131-670 (40-49 y) [phone] (50-59 y) 171-970 (60-69 y) 152-858 (>70 y) 136-689 (Premenopausal) [phone] (Postmenopausal) Flagging is based on the age-specific reference interval and not menopausal status. Blood 02/26/2025 2:27 PM EDT 02/26/2025 2:35 PM EDT Radha Pro MD LAB BLOOD ORDERABLES F inal Result Performing Organization Address [facility] Co de Phone Number [facility]PATH [address] [place] [address] * (ABNORMAL) Comprehensive metabolic panel (02/26/2025 2:27 PM EDT) Pathologist [facility] SODIUM 139 133 - 146 mmol/L [facility] POTASSIUM 4.0 3.3 - 5.1 mmol/L [facility] CHLORIDE 101 96 - 108 mmol/L [facility] CO2 26 21 - 35 mmol/L [facility] BUN 27(H) 6 - 19 mg/dL [facility] CREATININE 1.10 0.5 - 1.5 mg/dL [facility] GLUCOSE 88 70 - 99 mg/dL [facility] ALBUMIN 4.6 3.9 - 4.8 g/dL [facility] TOTAL PROTEIN 7.6 6.5 - 8.0 g/dL [facility] CALCIUM 9.7 8.4 - 10.3 mg/dL [facility] ALKALINE PHOSPHATASE 81 39 - 117 U/L [facility] TOTAL BILIRUBIN 0.9 0.0 - 1.2 mg/dL [facility] AST 19 0 - 37 U/L [facility] ALT 16 0 - 40 U/L [facility] GLOBULIN 3.0 1 - 4.8 g/dL [facility] EGFR 58(L) >59 mL/min/1.7 3m2 [facility] Comment:Estimated glomerular filtration rate calculated using the CKD-EPI refit equation. ANION GAP 16 10 - 20 mmol/L [facility] Blood 02/26/2025 2:27 PM EDT 02/26/2025 2:36 PM EDT Result Rubio Pro MD LAB BLOOD ORDERABLES F inal Result Performing Organization Address City/[facility]/ZIP Co de Phone Number [address] [address] * TSH with reflex (02/26/2025 2:27 PM EDT) TSH 1.90 0.27 - 4.20 uIU/mL [facility] Blood 02/26/2025 2:27 PM EDT 02/26/2025 2:36 PM EDT us Radha Pro MD LAB BLOOD ORDERABLES F inal Result [address] [address] * 25-OH vitamin D (02/26/2025 2:27 PM EDT) 25 OH VIT D (TOTAL) 38 30 - 60 ng/mL [facility] Blood 02/26/2025 2:27 PM EDT 02/26/2025 2:36 PM EDT us Radha Pro MD LAB BLOOD ORDERABLES F inal Result Performing Organization Address City/[facility]/ZIP Co de Phone Number [facility] [address] [place] [address] * Thyroglobulin, Tumor Marker (02/26/2025 2:27 PM EDT) THYROGLOBULIN <0.1 < or = 33 ng/mL [facility] THYROGLOBULIN AB <1.8 <1.8 IU/mL [facility] THYROGLOBULIN INTRP SEE NOTE [facility] Comment: (NOTE) Thyroglobulin (Tg) reference intervals are for patients with an intact thyroid and not for patients who have had surgery for thyroid cancer. Tg reference intervals in patients that have undergone thyroidectomy or any treatment for follicular thyroid cancer are dependent on the residual mass of the thyroid tissue after surgery. Tg results, regardless of concentration, should not be interpreted as absolute evidence for the presence or absence of papillary or follicular thyroid cancer. This result needs to be interpreted in the context of the clinical evaluation. ADDITIONAL INFORMATION PLEASE NOTE: The given cutoff of <1.8 IU/mL is for the detection of potential thyroglobulin antibody (TgAb) interference in thyroglobulin immunoassays. A thyroglobulin antibody (TgAb) reference cutoff of <4.0 IU/mL may be more suitable for the evaluation of autoimmune thyroiditis. The thyroglobulin and thyroglobulin antibody testing methods are immunoenzymatic assays manufactured by [employer] and performed on the [employer] DXI 800. Values obtained from different assay methods or kits may be different and cannot be used interchangeably. The results cannot be interpreted as absolute evidence for the presence or absence of malignant disease. Blood 02/26/2025 2:27 PM EDT 02/26/2025 2:35 PM EDT Radha Pro MD LAB BLOOD ORDERABLES F inal Result Performing Organization Address [facility]/ZIP Co de Phone Number [facility]PATH [address] [place] [address] * Parathyroid hormone (PTH) (02/26/2025 2:27 PM EDT) PARATHYROID HORMONE 31 15 - 65 pg/mL [facility] Blood 02/26/2025 2:27 PM EDT 02/26/2025 2:36 PM EDT Radha Pro MD LAB BLOOD ORDERABLES F inal Result [facility] [address] [place] [address] from Last 3 Months Insurance [facility] [address] [place] [address] PLAN [facility] PLAN [facility]AN [employer] Care Teams Bar Waiter/Waitress Relationship Specialty Start Date End Date Antonio Conner MD [address] [place] [address] PCP - General Family Medicine 02/29/24 Additional Source Comments The information contained in this document represents components of the legal health record. It is not the complete legal health record.[facility]
[2025-05-21 08:05] VITALS: BP 110/62; BMI 24.7
--- NOTE | 2025-05-21 08:05 | A.OFFVIS_ITS ---
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 Allergies No Known Allergies Allergy (Verified 12/18/24 12:35) PFSH Medical History Thyroid cancer Surgical History H/O colonoscopy H/O thyroidectomy History of lithotripsy Family History Mother Leukemia Father Leukemia Paternal Grandmother History of breast cancer Social History Household Members: Spouse and Children Housing: House Alcohol intake: never Patient Tobacco Use Status: Never used Tobacco e-Cigarette/Vaping Use: Never Used service: No Current occupational status: retired Cognitive needs: No Hearing needs: No Vision needs: Yes (Prescriprion glasses) Female Reproductive History Menstrual Age of Menarche: 12 control method: none Menopause type: natural Total pregnancies: 2 Full term: 2 Number of Living Children: 2 Date of last pap smear: 05/16/24 History of abnormal pap smear: Yes (age 19) History of STI: No Date of Mammogram: 10/22/24 History of abnormal mammogram: No Coding
--- NOTE | 2025-05-21 08:12 | MHC.OFFVIS ---
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 She is doing well with public information officer concerns. Currently sexually active. Denies any vaginal dryness or irritation. Attempting to eat a healthy diet with calcium and vitamin D and stays active with exercise. Last pap smear; 2023, negative. Last mammogram; 2023. Colonoscopy is UTD. Denies any family history of ovarian or colon cancer. FH breast cancer. [facility] Medical History Thyroid cancer Surgical History H/O colonoscopy H/O thyroidectomy History of lithotripsy Family History Mother Leukemia Father Leukemia Paternal Grandmother History of breast cancer Social History Household Members: Spouse and Children Housing: House Alcohol intake: never Patient Tobacco Use Status: Never used Tobacco e-Cigarette/Vaping Use: Never Used service: No Current occupational status: retired Cognitive needs: No Hearing needs: No Vision needs: Yes (Prescriprion glasses) Review of Systems Const All systems reviewed & are unremarkable except as noted in HPI and below Reports as per HPI Eyes Reports no additional complaints ENT Reports no additional complaints Card Reports no additional complaints Resp Reports no additional complaints GI Reports as per HPI and Reports no additional complaints Reports as per HPI Musc Reports no additional complaints Skin/Breast Reports as per HPI Neuro Reports no additional complaints Psych Reports no additional complaints Endo Reports no additional complaints Rupert/Lymph Reports no additional complaints Aller/Immun Reports no additional complaints Physical Exam Vital Signs: Last Vital Signs BP 110/62 05/21/25 08:05 BMI result Body Mass Index 24.7 Const General: cooperative, healthy appearing, no acute distress, well developed and alert Orientation/consciousness: patient oriented x3 HEENT Head: Yes normal to inspection Eyes General: appearance normal, both eyes and all related structures Neck Neck: Yes normal visual inspection Thyroid: Thyroid normal Chest Chest palpation & inspection: normal inspection of the chest and other (no puckering, dimpling, peau de orange, retraction, discharge, masses) Breast/axilla inspection: normal inspection of the breasts Breast/axilla palpation: normal palpation of the breasts Resp Effort & Inspection: normal respiratory effort GI Inspection: Yes normal to inspection Palpation (GI): Soft to palpation Rectal Exam - Female: deferred General: Yes bladder normal to palpation External Female Exam: normal external appearance and normal appearance of the urethra Speculum Exam - Vagina: normal appearance of the vagina, normal palpation and normal vaginal discharge Speculum Exam - Cervix: normal appearance of the cervix and normal palpation Bimanual exam- vagina & uterus: normal bimanual exam, normal palpation, uterine size normal, bladder normal to palpation, normal palpation and non-tender Bimanual Exam- Adnexa, other: no masses Skin General skin exam: no rashes or lesions noted Rashes: no rashes Neuro General: patient oriented x3 Cognition (Neuro): normal cognition Extrem General: Yes normal to inspection Psych Attitude: cooperative Thought process: Normal thought process present Assessment & Plan Assessment & Plan (1) Encounter for well woman exam with routine gynecological exam: Comment: Code(s): Z01.419 - Encounter for gynecological examination (general) (routine) without abnormal findings Category: Medical Plan Discussed: Current recommendations for pap smears per ASCCP guidelines. Breast awareness, periodic self breast exams and yearly mammogram. Maintain a healthy lifestyle, well balanced diet including Calcium 1,200 mg and Vitamin D 600 IU daily, and routine exercise. Contact the office with any postmenopausal bleeding. Patient verbalizes understanding and agrees to the plan of care. She was given opportunity to ask questions and all questions were answered to the best of my ability. RTO in 1 year for annual public information officer exam. This note is constructed using voice recognition software. While every effort has been made to ensure accuracy, assembly department supervisor errors may have been included. Coding Level of Care Code Est Pt Prev Care 40-64y(89670) Diagnoses Encounter for well woman exam with routine gynecological exam Z01.419
== END 2025-05-21 08:42 | disposition home or self-care (01) ==
LOC: HO.HWS 07:52
PROVIDERS: PCP Family Medicine; Visit Provider Advanced Practice Midwife
DX: Z01.419 Encounter for gynecological examination (general) (routine) without abnormal findings (principal)
CPT/HCPCS: 99396; 99459

== ENCOUNTER 2025-07-11 07:29 | Outpatient (REF) | payer OTHER, SELFPAY ==
--- OUTSIDE RECORDS SUMMARY | 2025-07-11 07:34 | XMS_ITS | Patient Health Record ---
Author Organization [employer] Address [facility] [address] Care Team Providers Care Point Of Care Specialist Name Role Phone Cece Steele Unavailable [phone] Reason For Referral No Information Medications Medication SIG (Take, Route, Frequency, Duration) Notes Start Date End Date Status Synthroid 112 MCG Tablet 1 tablet on an empty stomach in the morning Orally Once a day Active Social History Social History Additional Details Category Social Info Options Details Migrated Social History Migrated Social History (Migrated Social History):Drugs/Alcohol:(Alcoh ol Screen (Audit-C)): Did you have a drink containing alcohol in the past year?: Yes, How often did you have a drink containing alcohol in the past year?: Monthly or less (1 point), How many drinks did you have on a typical day when you were drinking in the past year?: 1 or 2 drinks (0 point), Points: 1 ;Miscellaneous:(Marital status:): ;Tobacco Use:(Tobacco Use/Smoking): Are you a: nonsmoker? Yes ; Plan Of Treatment No Information Medical (General) History Surgical History Surgery Date(Month/Year) Partial thyroidectomy -- cancer 1999 Thyroidectomy (removed remai ner of thyroid due to cancer), took radiation pills 2004
--- OUTSIDE RECORDS SUMMARY | 2025-07-11 07:34 | XMS_ITS | Clinical Summary ---
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 Social History Tobacco Use Types Packs/Day Years [...] 10:00 AM EDT Office Visit [facility] [address] [place] [address] [place] [address] Radha Pro MD [address] [place] [id number] Health Maintenance Due Date Last Done Comments [...] FOBT 2009 SIGMOIDOSCOPY 2009 VIRTUAL COLONOSCOPY 2009 INFLUENZA VACCINE (#1) 2025 COVID-19 VACCINE (1 - 2023-2 5 season) 2025 TSH LEVEL 02/26/2026 02/26/2025, 02/28/2023 RSV VACCINE [...] Routine 02/26/2025 2:27 PM EDT Postoperative hypothyroidism from Last 3 Months or Most Recently Relevant to Health Maintenance Results * TSH with reflex (02/26/2025 2:27 PM EDT) TSH 1.90 0.27 - 4.20 uIU/mL [facility] Blood 02/26/2025 2:27 PM EDT 02/26/2025 2:36 PM EDT us Radha Pro MD LAB BLOOD ORDERABLES F inal Result [facility] [address] [place] [address] from Last 3 Months or Most Recently Relevant to Health Maintenance Insurance [facility] PLAN [facility]AN [facility] [place] [address] [place] [address] HEALTH PLAN [facility] PLAN [employer] Care Teams Meter Calibrator Relationship Specialty Start Date End Date Antonio Conner MD [address] [place] [address] PCP - General Family Medicine 02/29/24 Additional Source Comments The information contained in this document represents components of the legal health record. It is not the complete legal health record.[facility]
[2025-07-11 11:46] LABS: Hemoglobin A1C 128.9593 umol/L; Total Hemoglobin (HGBA1C) 3691.3175 umol/L
[2025-07-11 12:05] LABS: Alanine Aminotransferase 20 U/L (0-31); Albumin Level 4.8 g/dL (3.5-5.0); Alkaline Phosphatase 77 U/L (39-117); Anion Gap 13 (12-20); Aspartate Amino Transferase 25 U/L (5-31); Blood Urea Nitrogen 23 mg/dL (9-16); Calcium 9.3 mg/dL (8.4-10.2); Carbon Dioxide 28 mmol/L (22-29); Chloride 101 mmol/L (96-108); Cholesterol 203 mg/dL (<200); Estimated Glomerular Filt Rate 53; HDL Cholesterol 55 mg/dL (>40); Potassium 4.1 mmol/L (3.3-5.1); Sodium 138 mmol/L (135-145); Total Protein 7.6 g/dL (6.5-8.0); Triglycerides 219 mg/dL (<150)
[2025-07-11 12:14] LABS: Free T4 (Free Thyroxine) 1.29 ng/dL (0.71-1.85); Thyroid Stimulating Hormone 4.44 uIU/mL (0.32-4.0)
== END 2025-07-11 07:30 | disposition home or self-care (01) ==
LOC: HO.WFDLDS 07:29
PROVIDERS: Visit Provider Family Medicine
DX: Z00.00 Encounter for general adult medical examination without abnormal findings (principal); E89.0 Postprocedural hypothyroidism; E78.5 Hyperlipidemia, unspecified; R73.01 Impaired fasting glucose
CPT/HCPCS: 36415; 80053; 80061; 83036; 84439; 84443; 84480

== ENCOUNTER 2025-07-18 11:14 | Outpatient (AMB) | payer OTHER, SELFPAY ==
--- NOTE | 2025-07-18 11:16 | MHC.PC.OV ---
Vital Signs 07/18/25 11:20 Height 5 ft 8 in Weight 161 lb 4 oz BMI 24.5 BP 137/77 Blood Pressure Location Rt brachial Position Sitting Respiration 16 Pulse 75 Pulse Source Pulse Oximeter Temp 98.4 F Temp Source Oral Pulse Oximetry (%) 98 Oxygen Delivery Method Room Air Intake Visit Reasons: semi annual lab work Intake Note: patient here for for lab results Foundation Engineer Required: No Is last menstrual period known: No Post menopausal: No Patient : No Allergies No Known Allergies Allergy (Verified 07/18/25 11:19) Medication List - Last Reconciled 07/18/25 by Antonio Conner MD atorvastatin 10 mg PO BEDTIME 90 days levothyroxine 112 mcg PO DAILY Tobacco use date assessed: 07/18/25 Dental Screening Dental Screen Date: 07/18/25 Did you have a dental visit in the last 12 months?: Yes Did you have a dental problem in the last 6 months where you did not have access to dental care?: No Was dental information given to patient?: Patient has dentist HPI semi annual lab work HPI Details 60 y/o female resents to f/u labs. Labs drawn 07/11/25. Reviewed labs with pt. Fasting glucose 88. A1c 5.3%. Triglycerides 219. TC 203. LDL 105. HDL 55. She is on artovastatin 10mg daily. TSH mildly elevated t 4.44 uIU/mL. She is on levothyroxine 112 mcg daily. Estimated GFR 53 HPI Comments History of Present Illness Details Documentation assistance for Antonio Conner MD, was provided by Rafiq Hannah, Armor Reconnaissance Vehicle Driver on at 11:28 AM SUSHIL. I, Dr. Conner, have read, observed, and verified documentation. [facility] Medical History Thyroid cancer Surgical History H/O colonoscopy H/O thyroidectomy History of lithotripsy Family History Mother Leukemia Father Leukemia Paternal Grandmother History of breast cancer Social History Household Members: Spouse and Children Housing: House Alcohol intake: never Patient Tobacco Use Status: Never used Tobacco e-Cigarette/Vaping Use: Never Used Second Hand Smoke Exposure: No service: No Current occupational status: retired Cognitive needs: No Hearing needs: No Vision needs: Yes (Prescriprion glasses) Female Reproductive History Menstrual Age of Menarche: 12 Questionnaire Thrive Questionnaire Date Thrive assessed: 11/22/24 I am a: Patient What is your living situation today?: I have a steady place to live Within the past 12 months, did the food you bought not last and you didn't have the money to get more?: Never true Within the past 12 months, did you worry whether your food would run out before you got money to buy more?: Never true Do you have trouble paying for medicines?: No Do you have trouble getting transportation to medical appointments?: No Do you have trouble paying your heating and electricity bill?: No Do you have trouble taking care of your child, family member or friend?: No Do you have trouble with day-to-day activities such as bathing, preparing meals, shopping, managing finances, etc.?: No Are you currently unemployed and looking for a job?: No Are you interested in more education?: No Please select the resources that you would like help with: None Currently or been in a relationship where the following occur: No concerns reported THRIVE Score: 0 COOPER-7 AMB Questionnaire COOPER-7 Date COOPER - 7 assessed: 11/29/24 Source: Developed by Drs. Tommy Carter, Salome Mcguire, Familia Tolentino and colleagues, with an educational jarrod from [employer]. Review of Systems Const Denies chills, Denies fatigue, Denies fever(s), Denies headache(s) and Denies weakness ENT Denies dizziness and Denies headache(s) Card Denies dyspnea Resp Denies cough, Denies dyspnea, Denies wheezing and Denies other (shortness of breath) Musc Denies numbness and Denies tingling Neuro Denies dizziness, Denies headache(s), Denies numbness, Denies tingling and Denies weakness Psych Denies anxiety and Denies depression Endo Denies fatigue Aller/Immun Denies wheezing Physical exam (Primary Care) Vital Signs: Last Vital Signs Temp 98.4 F 07/18/25 11:20 Pulse 75 09/18/25 11:20 Resp 16 07/18/25 11:20 BP 137/77 07/18/25 11:20 Pulse Ox 98 07/18/25 11:20 Oxygen Delivery Method Room Air 07/18/25 11:20 BMI result Body Mass Index 24.5 Tobacco/Smoking Status: Tobacco use Status Tobacco use date assessed 07/18/25 07/18/25 11:23 Patient Tobacco Use Status Never used Tobacco 07/18/25 11:19 e-Cigarette/Vaping Use Never Used 07/18/25 11:19 Thrive Assessment: Date of Thrive Assessment Date Thrive assessed 11/22/24 07/18/25 11:19 Currently or been in a relationship where the following occur: No concerns reported Const General: well developed; No acute distress Nutritional Appearance: well nourished Orientation/consciousness: patient oriented x3 HENMT Head: Yes normocephalic and Yes atraumatic Eyes General: appearance normal, both eyes and all related structures Pupils: Equal, round and reactive pupils present EOM: EOMs intact bilaterally Resp Effort & Inspection: normal respiratory effort Auscultation: clear to auscultation bilaterally Cardio Rate: regular rate Rhythm: regular rhythm Heart sounds: S1 normal heart sound present, S2 normal heart sound present, no gallops, no murmurs and no rubs Neuro General: patient oriented x3 and gait normal Cranial nerves: Yes Equal, round and reactive pupils present Psych Affect: normal affect Coding Level of Care Code Est Pt Level 4 (27694) Diagnoses Elevated fasting glucose R73.01 Hyperlipidemia E78.5 Elevated TSH R79.89 Mild renal insufficiency N28.9 Assessment & Plan Assessment & Plan (1) Elevated fasting glucose: Code(s): R73.01 - Impaired fasting glucose Category: Medical Plan: A1c 5.3% is in normal range She can continue to work on a diet lower in sugars and starches (2) Hyperlipidemia: Code(s): E78.5 - Hyperlipidemia, unspecified Category: Medical Plan: She is on atorvastatin 10 mg daily LDL cholesterol is slightly above goal of less than 100 Continue atorvastatin Work at lifestyle changes (3) Elevated TSH: Code(s): R79.89 - Other specified abnormal findings of blood chemistry Category: Medical Plan: Mildly elevated TSH though T4 is within normal range She is taking levothyroxine 112 mcg daily as prescribed Continue current medication regimen Will repeat thyroid hormone levels 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 and 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 follow-up there (4) Mild renal insufficiency: Code(s): N28.9 - Disorder of kidney and ureter, unspecified Category: Medical Plan: Patient notes that she does not keep up with water intake Encouraged her to increase water intake hydrate well Will recheck with next blood draw Orders: Orders Triiodothyronine T3 Total Today E03.9 - Hypothyroidism, unspecified, R79.89 - Other specified abnormal findings of blood chemistry Free T4 (Free Thyroxine) Today E03.9 - Hypothyroidism, unspecified, R79.89 - Other specified abnormal findings of blood chemistry Basic Metabolic Panel Today N28.9 - Disorder of kidney and ureter, unspecified, Z00.00 - Encounter for general adult medical examination without abnormal findings Microalbumin, Random (w Creat) Today I10 - Essential (primary) hypertension, N28.9 - Disorder of kidney and ureter, unspecified Thyroid Stimulating Hormone Today E03.9 - Hypothyroidism, unspecified, R79.89 - Other specified abnormal findings of blood chemistry UA CC w/rflx Micro + Cult Today N28.9 - Disorder of kidney and ureter, unspecified, Z00.00 - Encounter for general adult medical examination without abnormal findings
[2025-07-18 11:20] VITALS: BP 137/77; PULSE 75; RESP 16; TEMP 36.9; O2SAT 98; BMI 24.5
--- OUTSIDE RECORDS SUMMARY | 2025-07-18 13:33 | XMS_ITS | Clinical Summary ---
Author Organization [facility] Address [address] [address] Phone Care Team Providers Care Hot Blaster Name Role Phone Antonio Conner MD Primary [...] PCP schedule it to be done @ [facility] w/ cc results here (previous in FLA [...] 10:00 AM EDT Office Visit [facility] [address] [place] [address] [place] [address] Radha Pro MD [address] [place] [phone] [email or web address] Health Maintenance Due Date Last Done Comments [...] EDT) TSH 1.90 0.27 - 4.20 uIU/mL [facility] Blood 02/26/2025 2:27 PM EDT 02/26/2025 2:36 PM EDT us Radha Pro MD LAB BLOOD ORDERABLES F inal Result [facility] [address] [place] [address] from Last 3 Months or Most Recently Relevant to Health Maintenance Insurance [facility] HEALTH PLAN [facility] PLAN [facility] HEALTH PLAN [facility] [address] HEALTH PLAN [facility] PLAN [employer] DENT[employer] Care Teams Hot Blaster Relationship Specialty Start Date End Date Antonio Conner MD [address] [place] [address] PCP - General Family Medicine 02/29/24 Additional Source Comments The information contained in this document represents components of the legal health record. It is not the complete legal health record.[facility]
== END 2025-07-18 11:38 | disposition home or self-care (01) ==
LOC: HO.HMCFM 11:14
PROVIDERS: PCP Family Medicine; Visit Provider Family Medicine
DX: R73.01 Impaired fasting glucose (principal); E78.5 Hyperlipidemia, unspecified; R79.89 Other specified abnormal findings of blood chemistry; N28.9 Disorder of kidney and ureter, unspecified

== ENCOUNTER → 2025-07-18 11:14 | Outpatient (BNVA) | payer OTHER, SELFPAY | PROVIDERS: PCP Family Medicine; Visit Provider Family Medicine | DX: I10 Essential (primary) hypertension (principal); R73.01 Impaired fasting glucose; E78.5 Hyperlipidemia, unspecified; R79.89 Other specified abnormal findings of blood chemistry; N28.9 Disorder of kidney and ureter, unspecified; E03.9 Hypothyroidism, unspecified | CPT/HCPCS: 99212 ==

== ENCOUNTER 2025-08-29 09:03 | Outpatient (REF) | payer OTHER, SELFPAY ==
--- OUTSIDE RECORDS SUMMARY | 2025-08-29 10:07 | XMS_ITS | Clinical Summary ---
Author Organization [facility] Address [address] [address] Phone Care Team Providers Care Power Line Installer And Repairer Name Role Phone Antonio Conner MD Primary [...] PCP schedule it to be done @ [facility] [place] w/ cc results here (previous in FLA [...] 10:00 AM EDT Office Visit [facility] [address] [place] [address] [place] [address] Radha Pro MD [address] [place] [phone] [email or web address] Health Maintenance Due Date Last Done Comments [...] VACCINE (#1) 2025 COVID-19 VACCINE (1 - 2024-2 6 season) 2025 TSH LEVEL 02/26/2026 02/26/2025, 02/28/2023 [...] EDT) TSH 1.90 0.27 - 4.20 uIU/mL [facility] Blood 02/26/2025 2:27 PM EDT 02/26/2025 2:36 PM EDT us Radha Pro MD LAB BLOOD ORDERABLES F inal Result [facility] [address] [place] [address] from Last 3 Months or Most Recently Relevant to Health Maintenance Insurance [facility] PLAN [facility]AN [facility] HEALTH PLAN [facility] HEALTH [place] [address] [address] HEALTH PLAN [facility] PLAN [employer] DENTAL Care Teams Power Line Installer And Repairer Relationship Specialty Start Date End Date Antonio Conner MD PCP - General Family Medicine 02/29/24 Additional Source Comments The information contained in this document represents components of the legal health record. It is not the complete legal health record.[facility]
--- OUTSIDE RECORDS SUMMARY | 2025-08-29 10:07 | XMS_ITS | Patient Health Record ---
Author Organization [employer] Address [facility] [address] Care Team Providers Care General Activities Therapist Name Role Phone Cece Steele Unavailable [phone] Reason For Referral No Information Medications Medication [...] Medical (General) History Surgical History Surgery Date(Month/Year) Thyroidectomy (removed remai ner of thyroid due to cancer), took radiation pills 2004 Partial thyroidectomy -- cancer 1999
[2025-08-29 11:56] LABS: Appearance Urine Clear; Glucose Urine UA Negative (Negative); PH 7.0 (5.0-9.0); Specific Gravity - Urine <= 1.005 (1.005-1.025)
[2025-08-29 12:04] LABS: Anion Gap 13 (12-20); Blood Urea Nitrogen 23 mg/dL (9-16); Calcium 9.8 mg/dL (8.4-10.2); Carbon Dioxide 27 mmol/L (22-29); Chloride 105 mmol/L (96-108); Estimated Glomerular Filt Rate > 60; Potassium 4.1 mmol/L (3.3-5.1); Sodium 141 mmol/L (135-145)
[2025-08-29 12:09] LABS: Free T4 (Free Thyroxine) 1.25 ng/dL (0.71-1.85); Thyroid Stimulating Hormone 1.96 uIU/mL (0.32-4.0)
== END 2025-08-29 09:04 | disposition home or self-care (01) ==
LOC: HO.WFDLDS 09:03
PROVIDERS: Visit Provider Family Medicine
DX: Z00.00 Encounter for general adult medical examination without abnormal findings (principal); I10 Essential (primary) hypertension; N28.9 Disorder of kidney and ureter, unspecified; E03.9 Hypothyroidism, unspecified; R79.89 Other specified abnormal findings of blood chemistry
CPT/HCPCS: 36415; 80048; 81003; 82043; 82570; 84439; 84443; 84480

== ENCOUNTER 2025-09-02 11:52 | Outpatient (AMB) | payer OTHER, SELFPAY ==
--- NOTE | 2025-09-02 11:46 | A.OFFPC_ITS ---
Intake Visit Reasons: f/u labs via telemed Intake Note: patient is scheduled to review lab results with pcp Parts And Service Manager Required: No Allergies No Known Allergies Allergy (Verified 09/02/25 11:48) Medication List - Last Reconciled 09/02/25 by Antonio Conner MD atorvastatin 10 mg PO BEDTIME 90 days levothyroxine 112 mcg PO DAILY Tobacco use date assessed: 07/18/25 Dental Screening Dental Screen Date: 07/18/25 HPI f/u labs via telemed HPI Details 60 y/[facility] female [facility] Labs drawn 08/29/25. Reviewed labs with pt. TSH improved from 4.44 to 1.96. She is on levothyroxine 112 mcg daily. [facility] Medical History Thyroid cancer Surgical History H/O colonoscopy H/O thyroidectomy History of lithotripsy Family History Mother Leukemia Father Leukemia Paternal Grandmother History of breast cancer Social History Household Members: Spouse and Children Housing: House Alcohol intake: never Patient Tobacco Use Status: Never used Tobacco e-Cigarette/Vaping Use: Never Used Second Hand Smoke Exposure: No service: No Current occupational status: retired Cognitive needs: No Hearing needs: No Vision needs: Yes (Prescriprion glasses) Female Reproductive History Menstrual Age of Menarche: 12 Questionnaire Thrive Questionnaire Date Thrive assessed: 11/22/24 I am a: Patient What is your living situation today?: I have a steady place to live Within the past 12 months, did the food you bought not last and you didn't have the money to get more?: Never true Within the past 12 months, did you worry whether your food would run out before you got money to buy more?: Never true Do you have trouble paying for medicines?: No Do you have trouble getting transportation to medical appointments?: No Do you have trouble paying your heating and electricity bill?: No Do you have trouble taking care of your child, family member or friend?: No Do you have trouble with day-to-day activities such as bathing, preparing meals, shopping, managing finances, etc.?: No Are you currently unemployed and looking for a job?: No Are you interested in more education?: No Please select the resources that you would like help with: None Currently or been in a relationship where the following occur: No concerns reported THRIVE Score: 0 COOPER-7 AMB Questionnaire COOPER-7 Date COOPER - 7 assessed: 11/29/24 Source: Developed by Drs. Tommy Carter, Salome Mcguire, Familia Tolentino and colleagues, with an educational jarrod from [employer]. Review of Systems Const Denies chills, Denies fatigue, Denies fever(s), Denies headache(s) and Denies weakness ENT Denies dizziness and Denies headache(s) Card Denies dyspnea Resp Denies cough, Denies dyspnea, Denies wheezing and Denies other (shortness of breath) Musc Denies numbness and Denies tingling Neuro Denies dizziness, Denies headache(s), Denies numbness, Denies tingling and Denies weakness Psych Denies anxiety and Denies depression Endo Denies fatigue Aller/Immun Denies wheezing Physical exam (Primary Care) Tobacco/Smoking Status: Tobacco use Status Tobacco use date assessed 07/18/25 09/02/25 11:46 Patient Tobacco Use Status Never used Tobacco 09/02/25 11:46 e-Cigarette/Vaping Use Never Used 09/02/25 11:46 Thrive Assessment: Date of Thrive Assessment Date Thrive assessed 11/22/24 09/02/25 11:46 Currently or been in a relationship where the following occur: No concerns reported Const General: well developed; No acute distress Nutritional Appearance: well nourished Orientation/consciousness: patient oriented x3 HENMT Head: Yes normocephalic and Yes atraumatic Eyes General: appearance normal, both eyes and all related structures Pupils: Equal, round and reactive pupils present EOM: EOMs intact bilaterally Resp Effort & Inspection: normal respiratory effort Neuro General: patient oriented x3 and gait normal Cranial nerves: Yes Equal, round and reactive pupils present Psych Affect: normal affect Telehealth Telehealth Telehealth Platform: Telephone Location of provider rendering services: practice address Location of patient: address on file Patient Identification confirmed using: Name, : Yes Telehealth method: voice only Patient verbally consented to treatment: Yes Patient verbally consented to billing insurance company: Yes Patient informed of any privacy concerns related to visit: Yes Minutes spent on Phone/Video with Pt.: 5 Coding Level of Care Code Tele Est Pt Level 2 (66093) Diagnoses H/O thyroidectomy E89.0 Elevated TSH R79.89 Mild renal insufficiency N28.9 Breast cancer screening by mammogram Z12. Screening for osteoporosis Z13.820 Assessment & Plan Assessment & Plan (1) H/O thyroidectomy: Comment: unknown if partial or all Code(s): E89.0 - Postprocedural hypothyroidism Category: Surgical (2) Elevated TSH: Code(s): R79.89 - Other specified abnormal findings of blood chemistry Category: Medical (3) Mild renal insufficiency: Code(s): N28.9 - Disorder of kidney and ureter, unspecified Category: Medical (4) Breast cancer screening by mammogram: Code(s): Z12.31 - Encounter for screening mammogram for malignant neoplasm of breast Category: Medical (5) Screening for osteoporosis: Code(s): Z13.820 - Encounter for screening for osteoporosis Category: Medical Plan TSH was mildly elevated at prior lab check. Most recent lab draw shows thyroid hormone levels all within normal range. Continue levothyroxine 112 mcg daily GFR was slightly low at 53 at prior lab check. Most recent lab shows renal function appears normal. Mild elevation in BUN. She should continue good hydration. Will continue monitor Bone density test is ordered. She has not gotten this scheduled yet. Her mammogram is scheduled for October in to call to have her bone density test scheduled as well. We can follow-up on this at her next visit Orders: Orders Lipid Panel Today E78.5 - Hyperlipidemia, unspecified, Z00.00 - Encounter for general adult medical examination without abnormal findings
--- OUTSIDE RECORDS SUMMARY | 2025-09-02 15:05 | XMS_ITS | Clinical Summary ---
Author Organization [facility] Address [address] [address] Phone Care Team Providers Care Revenue Inspector Name Role Phone Antonio Conner MD Primary [...] PCP schedule it to be [place] [facility] [place]/ cc results here (previous [...] AM EDT Office Visit [facility] [address] [place] [address] [place] [address] Radha Pro MD [address] [place] [phone] Health Maintenance Due Date Last Done Comments [...] EDT) TSH 1.90 0.27 - 4.20 uIU/mL [facility] Blood 02/26/2025 2:27 PM EDT 02/26/2025 2:36 PM EDT us Radha Pro MD LAB BLOOD BKR ORDERABL ES Final Result [facility] [address] [place] [address] from Last 3 Months or Most Recently Relevant to Health Maintenance Insurance [facility] PLAN [facility] PLAN [facility] PLAN [facility] [place] [address] [place] [address] HEALTH PLAN [facility] PLAN [employer]IG[employer] DENTAL Care Teams Revenue Inspector Relationship Specialty Start Date End Date Antonio Conner MD PCP - General Family Medicine 02/29/24 Additional Source Comments The information contained in this document represents components of the legal health record. It is not the complete legal health record.[facility]
--- OUTSIDE RECORDS SUMMARY | 2025-09-02 15:05 | XMS_ITS | Patient Health Record ---
Author Organization [employer] Address [facility] [address] Care Team Providers Care Manager Apple Name Role Phone Cece Steele Unavailable [phone] Reason For Referral No Information Medications Medication [...]
== END 2025-09-02 16:56 | disposition home or self-care (01) ==
LOC: HO.HMCFM 11:53
PROVIDERS: PCP Family Medicine; Visit Provider Family Medicine
DX: E89.0 Postprocedural hypothyroidism (principal); R79.89 Other specified abnormal findings of blood chemistry; N28.9 Disorder of kidney and ureter, unspecified; Z12.31 Encounter for screening mammogram for malignant neoplasm of breast; Z13.820 Encounter for screening for osteoporosis

== ENCOUNTER 2025-10-23 11:40 | Outpatient (REF) | payer OTHER, SELFPAY ==
--- OUTSIDE RECORDS SUMMARY | 2025-10-23 11:44 | XMS_ITS | Patient Health Record ---
Author Organization [employer] Address [facility] [address] Care Team Providers Care Philanthropy Officer Name Role Phone Cece Steele Unavailable [phone] Reason For Referral No Information Medications Medication [...]
--- OUTSIDE RECORDS SUMMARY | 2025-10-23 11:44 | XMS_ITS | Clinical Summary ---
Author Organization [facility] Address [address] [address] Phone Care Team Providers Care Fish Cake Maker Name Role Phone Antonio Conner MD Primary [...] PCP schedule [place] to be [place] [facility] here (previous in FLA [...] Description 03/12/2026 10:00 AM EDT Office Visit [facility] [address] [place] [address] [place] [address] Radha Pro MD [address] [place] [phone] [email or web address] Health Maintenance Due Date Last Done Comments [...] EDT) TSH 1.90 0.27 - 4.20 uIU/mL [facility] Blood 02/26/2025 2:27 PM EDT 02/26/2025 2:36 PM EDT us Radha Pro MD LAB BLOOD BKR ORDERABL ES Final Result [facility] [address] [place] [address] from Last 3 Months or Most Recently Relevant to Health Maintenance Insurance [facility]ALTH PLAN [facility] HEALTH PLAN [facility] PLAN [facility] [place] [address] [place] [address] [place] [address] [place] [address] HEALTH PLAN [employer] Care Teams Fish Cake Maker Relationship Specialty Start Date End Date Antonio Conner MD PCP - General Family Medicine 02/29/24 Additional Source Comments The information contained in this document represents components of the legal health record. It is not the complete legal health record.[facility]
[2025-10-23 16:21] LABS: Appearance Urine Cloudy; Glucose Urine UA Negative (Negative); PH 5.5 (5.0-9.0); Specific Gravity - Urine 1.020 (1.005-1.025); UMIC TRIGGER UACC YES
[2025-10-23 16:27] LABS: UACC Culture Trigger YES
[2025-10-23 18:43] LABS: Microalbum/Creatinine Ratio Ur 41.7 ug/mg cr (<30)
== END 2025-10-23 11:41 | disposition home or self-care (01) ==
LOC: HO.WFDLDS 11:40
PROVIDERS: Visit Provider Family Medicine
DX: Z00.00 Encounter for general adult medical examination without abnormal findings (principal); I10 Essential (primary) hypertension; N28.9 Disorder of kidney and ureter, unspecified; R82.71 Bacteriuria
CPT/HCPCS: 81001; 82043; 82570; 87086; 87088; 87186